=== PATIENT | female | born 1985 | race Caucasian/White ===

== ENCOUNTER 2016-12-28 09:39 | Emergency (ER) | payer MEDICAID ==
--- NOTE | 2016-12-28 10:44 | EDM.PDOC ---
[id number]: RIGHT SIDED ABDOMINAL PAIN Time Seen by Provider: 12/28/16 10:20 Source of Information: Reports: Patient History Limitations: Reports: No Limitations - History of Present Illness INITIAL COMMENTS - FREE TEXT/NARRATIVE: 31-year-old female who has had a right upper quadrant abdominal pain radiating to the right flank for the last 3 days. Some nausea and vomiting, decreased appetite but no fever. Some increased pain with deep breath but no shortness of breath or cough. She has a history of several abdominal surgeries including gastric bypass, cholecystectomy, and several laparoscopies to evaluate pain. No recent trauma, no rash over painful area. Denies distended feeling or diarrhea. Onset: Gradual (Started 3 days ago) Location: Reports: Abdomen, Back (Right flank) Quality: Reports: Ache, Pressure Severity: Moderate Worsens with: Reports: Other (Worsening with deep breath) Associated Symptoms: Reports: Loss of Appetite, Nausea/Vomiting. Denies: Chest Pain, Cough, Fever/Chills, Headaches, Shortness of Breath, Weakness Right Abdomen Pain Score (Numeric/FACES): 7 - Related Data Allergies Allergy/AdvReac Type Severity Reaction Status Date / Time Sulfa (Sulfonamide Allergy Cannot Verified 12/28/16 09:59 Antibiotics) Remember Home Meds: Home Meds Dicyclomine [Bentyl] 10 mg PO ONETIME PRN 12/28/16 [History] Doxepin [SINEquan] 25 mg PO BEDTIME 12/28/16 [History] Gabapentin [Neurontin] 400 mg PO DAILY 12/28/16 [History] Omeprazole 40 mg PO DAILY 12/28/16 [History] Topiramate [Topamax] 50 mg PO BID 12/28/16 [History] Past Medical History Respiratory History: Reports: Bronchitis, Recurrent Gastrointestinal History: Reports: Cholelithiasis, GERD, Irritable Bowel Syndrome Musculoskeletal History: Reports: Fracture Other Musculoskeletal History: Right hand Neurological History: Reports: Migraines Other Neuro History: Pseudotumor cerebril Psychiatric History: Reports: Anxiety, Depression Hematologic History: Reports: Anemia Other Hematologic History: Iron infusion done at clinic Dermatologic History: Reports: Psoriasis - Past Surgical History GI Surgical History: Reports: Bariatric Procedure, Cholecystectomy Other GI Surgeries/Procedures: 9yr RNY. 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 Social & Family History - Tobacco Use Smoking Status *Q: Current Every Day Smoker Years of Tobacco use: 15 Packs/Tins Daily: 0.5 - Caffeine Use Caffeine Use: Reports: Energy Drinks - Recreational Drug Use Recreational Drug Use: No ED ROS GENERAL - Review of Systems Review Of Systems: See Below Constitutional: Reports: Decreased Appetite. Denies: Fever, Chills HEENT: Reports: No Symptoms Respiratory: Reports: Pleuritic Chest Pain (Pain with deep breath). Denies: Shortness of Breath Cardiovascular: Denies: Lightheadedness, Palpitations GI/Abdominal: Reports: Abdominal Pain, Nausea. Denies: Diarrhea : Reports: No Symptoms Skin: Reports: No Symptoms Neurological: Reports: No Symptoms ED EXAM, GI/ABD - Physical Exam Exam: See Below Exam Limited By: No Limitations General Appearance: Alert, No Apparent Distress Eyes: Bilateral: Normal Appearance (No jaundice) Respiratory/Chest: No Respiratory Distress, Lungs Clear Cardiovascular: Regular Rate, Rhythm GI/Abdominal: Normal Bowel Sounds, Soft, Tenderness (She has moderate tenderness to palpation in the right upper quadrant, no significant guarding or rebound. No chest wall tenderness to palpation.) Back Exam: Normal Inspection. No: CVA Tenderness (R), CVA Tenderness (L) Extremities: Normal Inspection. No: Pedal Edema Neurological: Alert, Oriented Psychiatric: Normal Affect, Normal Mood Skin Exam: Warm, Dry Course - Vital Signs Last Recorded V/S: Last Vital Signs Temp 97.0 F 12/28/16 09:52 Pulse 74 12/28/16 11:20 Resp 16 12/28/16 11:20 BP 121/75 12/28/16 11:20 Pulse Ox 97 12/28/16 11:20 - Orders/Labs/Meds Labs: Laboratory Tests 12/28/16 12/28/16 12/28/16 Range/Units 10:32 10:32 10:36 WBC 9.0 (4.5-11.0) K/uL RBC 4.84 (3.30-5.50) M/uL Hgb 14.6 (12.0-15.0) g/dL Hct 44.9 (36.0-48.0) % MCV 93 (80-98) fL MCH 30 (27-31) pg MCHC 33 (32-36) % Plt Count 291 (150-400) K/uL Neut % (Auto) 58 (36-66) % Lymph % (Auto) 27 (24-44) % [place] % (Auto) 8 H (2-6) % Eos % (Auto) 6 H (2-4) % Baso % (Auto) 1 (0-1) % Sodium 141 (140-148) mmol/L Potassium 4.2 (3.6-5.2) mmol/L Chloride 106 (100-108) mmol/L Carbon Dioxide 29 (21-32) mmol/L Anion Gap 6.1 (5.0-14.0) mmol/L BUN 10 (7-18) mg/dL Creatinine 0.8 (0.6-1.0) mg/dL Est Cr Clr Drug Dosing 82.06 mL/min Estimated GFR (MDRD) > 60 (>60) Glucose 94 (74-106) mg/dL Calcium 8.5 (8.5-10.1) mg/dL Total Bilirubin 0.3 (0.2-1.0) mg/dL AST 22 (15-37) U/L ALT 23 (12-78) U/L Alkaline Phosphatase 83 (46-116) U/L Total Protein 7.4 (6.4-8.2) g/dL Albumin 3.5 (3.4-5.0) g/dL Globulin 3.9 H (2.3-3.5) g/dL Albumin/Globulin Ratio 0.9 L (1.2-2.2) Amylase 42 (25-115) U/L Lipase 116 (73-393) U/L Urine HCG, Qual Negative Meds: Medications Discontinued Medications Generic Name Dose Route Start Last Admin Trade Name Freq PRN Reason Stop Dose Admin Sodium Chloride 100 mls @ 3.5 mls/sec 12/28/16 11:45 12/28/16 12:01 Normal Saline IV 12/28/16 23:00 3 mls/sec ASDIRECTED MENDEZ Administration Iohexol 10 ml 12/28/16 11:30 12/28/16 11:33 Omnipaque-300 PO 10 ml . DIRECTED MENDEZ Administration Iopamidol 100 ml 12/28/16 11:44 12/28/16 12:01 Isovue-300 (61%) IV 12/29/16 11:45 100 ml . DIRECTED PRN Administration RADIOLOGY EXAM Ketorolac Tromethamine 60 mg 12/28/16 12:28 12/28/16 12:40 Toradol IM 12/28/16 12:29 60 mg ONETIME ONE Administration Sodium Chloride 10 ml 12/28/16 11:44 12/28/16 12:02 Normal Saline FLUSH 12/28/16 11:45 10 ml ONETIME ONE Administration - Re-Assessments/Exams Free Text/Narrative Re-Assessment/Exam: 12/28/16 10:44 Amylase, lipase, CBC CMP and UA along with urine were obtained. It is likely she will need some type of visual studies such as CT scan with some oral contrast because of the history of gastric bypass and cholecystectomy. 12/28/16 11:04 All labs are normal. A CT of the abdomen and pelvis will be obtained with one oral dose of contrast along with IV. 12/28/16 12:[address] is also completely normal other than postoperative changes. Patient was given 60 mg of Toradol IM, encouraged to take twice daily Aleve for her presumptive pleurisy or musculoskeletal pain and can return anytime if worsening. Departure - Departure Time of Disposition: 12:44 Disposition: Home, Self-Care 01 Condition: good Clinical Impression: Flank pain, Pleurisy without effusion - Discharge Information Instructions: Nonspecific Chest Pain Referrals: Lesly Dougherty CNM [Primary Care Provider] - Forms: ED Department Discharge Care Plan Goals: Try twice daily Aleve and consider rechecking in 2-3 days if not improving satisfactorily. Increase activity as tolerated. Return sooner if worsening such as shortness of breath or fever.
[2016-12-28 11:21] VITALS: BP 121/75
[2016-12-28] MEDS ORDERED: Iohexol 647 MG/ML 10 ML SDV PO SCH (11:30)
[2016-12-28] MEDS ORDERED: Sodium Chloride 0.9% 10 ML SDV FLUSH ONE (11:44)
[2016-12-28] MEDS ORDERED: Iopamidol 612 MG/ML 100 ML Bottle IV PRN (11:44)
[2016-12-28] MEDS ORDERED: Sodium Chloride 0.9% 100 ML IV SCH (11:45)
[2016-12-28] MEDS ORDERED: Ketorolac 60 MG/2 ML SDV IM ONE (12:28)
--- NOTE | 2016-12-28 12:43 | CT ---
CT abdomen and pelvis Indication: Right upper abdominal pain. Total DLP 812. Findings: Lung bases are clear. Tiny low-density lesion in the left hepatic lobe at 6 mm. Prior chol ecystectomy change. Adrenal glands are within normal limits. Pancreas within normal limits. Spleen w ithin normal limits. No dilated loops of small bowel. The limbs of the gastric bypass are nondilated . Small amount of free pelvic fluid. Appendix within normal limits. Terminal ileum within normal blevins its. No hydronephrosis. Bladder is unremarkable. Nonaneurysmal aorta. No acute osseous abnormality. Impression: 1. No acute intra-abdominal or pelvic process by CT. 2. Small low-density focus within the left lobe this is indeterminant. This could indicate a small h emangioma. Consider nonurgent ultrasound follow-up for evaluation.
== END 2016-12-28 12:44 | disposition home or self-care (01) ==
LOC: JP.ED 09:39
DX: R10.11 Right upper quadrant pain (principal); R09.1 Pleurisy; K21.9 Gastro-esophageal reflux disease without esophagitis; F41.9 Anxiety disorder, unspecified; F32.9 Major depressive disorder, single episode, unspecified; F17.210 Nicotine dependence, cigarettes, uncomplicated; Z98.84 Bariatric surgery status; Z90.49 Acquired absence of other specified parts of digestive tract; Z79.899 Other long term (current) drug therapy; Z88.2 Allergy status to sulfonamides
CPT/HCPCS: 36415; 74177; 80053; 81025; 82150; 83690; 85025; 99284; J1885; J7030; J7050; Q9967

== ENCOUNTER 2017-01-06 08:09 | Day surgery (SDC) | payer MEDICAID ==
[~2017-01-06 08:09] MED LIST: Midazolam 1 MG/ML 2 ML SDV ONE; Propofol 200 MG/20 ML SDV ONE; fentaNYL 100 MCG/2 ML SDV ONE
[2017-01-06] MEDS ORDERED: Lactated Ringers 1,000 ML IV SCH (09:15)
[2017-01-06] MEDS ORDERED: Cyanocobalamin (Vitamin B12) 1,000 MCG/ML SDV IM ONE (09:30)
[2017-01-06] MEDS ORDERED: Glycopyrrolate 0.2 MG/ML 2 ML SYRINGE IVPUSH ONE (09:45)
[2017-01-06] MEDS ORDERED: MVI, Adult with Vitamin K 10 ML, Thiamine 200 MG, Chromium/Copper/Mang/Selen/Zn 1 ML in... IV ONE ×4 (10:00)
[2017-01-06 13:40] VITALS: BP 113/66
--- NOTE | 2017-01-10 14:07 | OR ---
DATE OF PROCEDURE: 01/06/2017 PREOPERATIVE DIAGNOSIS: Upper abdominal pain. 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 OPERATIVE PROCEDURE: Upper GI endoscopy with biopsies of gastric pouch for CLOtest. ANESTHESIA: IV sedation. INDICATION FOR PROCEDURE: This is a 31-year-old status post Walter-en-Y gastric bypass done in [place] some years ago. She presents now with a right upper quadrant pain. She is status post previous cholecystectomy but has had negative MRCP. The plan is to proceed with upper GI endoscopy to see if there are some identifiable cause. One of the pitfalls potentially would be the bypassed stomach and duodenum are not available for examination. Potential risks including bleeding and perforation were discussed and the patient wishes to proceed. DETAILS OF PROCEDURE: The patient was taken to the operative room, placed in a left lateral decubitus position. IV sedation was administered, after which the upper GI endoscope was passed orally through the length of the esophagus and into the gastric pouch and from there through the gastrojejunostomy roughly 20 cm into the Walter limb. No abnormality was noted during the examination. There was some very mild redness within the gastric pouch. Otherwise, there is no stricturing, ulceration, or other more significant inflammation. Biopsies were obtained from the gastric pouch, sent for CLOtest for H. pylori, and the scope was withdrawn and the procedure was concluded. The patient will be followed up in clinic next Tuesday. She was just started on Protonix. After another week or so on Protonix if her symptoms are not improved, we could consider diagnostic laparoscopy. She will be following up with us in the clinic next Tuesday. Carlos Manuel Nguyen MD /[id number]
== END 2017-01-06 14:05 | disposition home or self-care (01) ==
LOC: JP.SDS 08:09
PROVIDERS: ATTEND Surgery
DX: K29.70 Gastritis, unspecified, without bleeding (principal); K21.9 Gastro-esophageal reflux disease without esophagitis; Z98.84 Bariatric surgery status; Z88.2 Allergy status to sulfonamides; Z88.8 Allergy status to other drugs, medicaments and biological substances; F17.210 Nicotine dependence, cigarettes, uncomplicated; Z90.49 Acquired absence of other specified parts of digestive tract
CPT/HCPCS: 43239; 87081; J2250; J2704; J3010; J3420; J7120

== ENCOUNTER 2017-01-18 10:25 | Inpatient (IN) | payer MEDICAID ==
[~2017-01-18 10:25] MED LIST changes: +Bupivacaine 0.5%/EPINEPHrine 1:200,000 50 ML MDV ONE; -Midazolam 1 MG/ML 2 ML SDV ONE; -Propofol 200 MG/20 ML SDV ONE; -fentaNYL 100 MCG/2 ML SDV ONE
[2017-01-18] MEDS ORDERED: Acetaminophen 500 MG Tab PO ONE (10:30)
[2017-01-18] MEDS ORDERED: Dextrose 5%-Lactated Ringers 1,000 ML IV SCH (10:30)
[2017-01-18] MEDS ORDERED: Scopolamine 1.5 MG Transdermal Patch TRDERM SCH (10:30)
[2017-01-18] MEDS ORDERED: Gabapentin 100 MG Cap PO ONE (11:00)
[2017-01-18] MEDS ORDERED: Celecoxib 200 MG Cap PO ONE (11:00)
[2017-01-18] MEDS ORDERED: Lactated Ringers 1,000 ML ONE ×3 (11:07→14:53)
[2017-01-18] MEDS ORDERED: Dexamethasone 4 MG/ML SDV ONE (11:07)
[2017-01-18] MEDS ORDERED: Succinylcholine/Normal Saline 200 MG/10 ML Syringe ONE (11:07)
[2017-01-18] MEDS ORDERED: Ondansetron 4 MG/2 ML SDV ONE (11:07)
[2017-01-18] MEDS ORDERED: Rocuronium 50 MG/5 ML Vial ONE ×2 (11:07→15:40)
[2017-01-18] MEDS ORDERED: Neostigmine Methylsulfate 1 MG/ML 5 ML Syringe ONE (11:07)
[2017-01-18] MEDS ORDERED: Propofol 200 MG/20 ML SDV ONE (11:07)
[2017-01-18] MEDS ORDERED: fentaNYL 250 MCG/5 ML SDV ONE ×2 (11:08→14:41)
[2017-01-18] MEDS ORDERED: Ketamine 500 MG/5 ML MDV IV SCH (12:00)
[2017-01-18] MEDS ORDERED: Lidocaine 2% 100 MG/5 ML Syringe IVPUSH ONE (12:00)
[2017-01-18] MEDS ORDERED: Ropivacaine 36 ML, Dexamethasone 8 MG, EPINEPHrine 0.4 MG, Sodium Chloride 0.9% 41.6 ML NERVRT SCH ×4 (12:00)
[2017-01-18] MEDS ORDERED: Hydrogen Peroxide 3% Top Soln 240 ML Bottle ONE (12:41)
[2017-01-18] MEDS: cefOXitin 2 GM in Sodium Chloride 0.9% 50 ML IV ONE ×2 (12:59→17:26)
[2017-01-18] MEDS ORDERED: Linezolid 200 MG/100 ML Bag IRR ONE (13:59)
[2017-01-18] MEDS ORDERED: Meropenem 500 MG SDV ONE (14:24)
[2017-01-18] MEDS ORDERED: Ketoconazole 2% Crm 30 GM Tube TOP ONE (14:45)
[2017-01-18] MEDS ORDERED: diphenhydrAMINE 50 MG/ML SDV IVPUSH PRN (17:14)
[2017-01-18] MEDS ORDERED: Ondansetron 4 MG/2 ML SDV IVPUSH PRN (17:14)
[2017-01-18] MEDS ORDERED: SCOPOLAMINE PATCH ASK TOP SCH (17:14)
[2017-01-18] MEDS ORDERED: Labetalol 20 MG/4 ML Syringe IVPUSH PRN (17:14)
[2017-01-18] MEDS: Lidocaine 0.4%/D5W 2 GM/500 ML BAG IV SCH (17:22)
[2017-01-18] MEDS: Acetaminophen 325 MG Tab PO SCH (17:53)
[2017-01-18] MEDS: Pantoprazole 40 MG Vial IVPUSH SCH (17:53)
[2017-01-18] MEDS: cefOXitin 2 GM in Sodium Chloride 0.9% 50 ML IV SCH (17:58)
[2017-01-18] MEDS: MVI, Adult with Vitamin K 10 ML, Thiamine 200 MG, Chromium/Copper/Mang/Selen/Zn 1 ML in... IV SCH ×4 (17:59)
[2017-01-18] MEDS: hydrOXYzine HCl 50 MG/ML SDV IM PRN (18:11)
[2017-01-18] MEDS ORDERED: Naloxone 0.4 MG/ML SDV IVPUSH PRN (19:06)
[2017-01-18] MEDS ORDERED: HYDROmorphone/Normal Saline 15 MG/30 ML PCA IV PRN (19:06)
[2017-01-18] MEDS: Metoclopramide 10 MG/2 ML SDV IVPUSH PRN (19:40)
[2017-01-18] MEDS: Heparin Sodium 5,000 Units/ML Vial SUBCUT SCH (20:24)
[2017-01-18] MEDS: Gabapentin 300 MG Cap PO SCH (20:24)
[2017-01-19] MEDS: Acetaminophen 325 MG Tab PO SCH ×4 (00:13→17:40)
[2017-01-19] MEDS: Dextrose 5%-Lactated Ringers 1,000 ML IV SCH ×2 (00:18→07:10)
[2017-01-19] MEDS: cefOXitin 2 GM in Sodium Chloride 0.9% 50 ML IV SCH ×4 (00:20→17:40)
[2017-01-19] MEDS ORDERED: Iohexol 647 MG/ML 50 ML SDV PO STA (03:43)
[2017-01-19] MEDS: Lidocaine 0.4%/D5W 2 GM/500 ML BAG IV SCH (05:58)
[2017-01-19] MEDS: Fluticasone Propionate Nasal Spray 16 GM Bottle NASBOTH SCH (08:57)
[2017-01-19] MEDS: Celecoxib 200 MG Cap PO SCH (08:57)
[2017-01-19] MEDS: Gabapentin 300 MG Cap PO SCH ×3 (08:58→21:34)
[2017-01-19] MEDS: SCOPOLAMINE PATCH CHECK TOP SCH (08:58)
[2017-01-19] MEDS: Heparin Sodium 5,000 Units/ML Vial SUBCUT SCH ×2 (08:58→21:33)
[2017-01-19] MEDS: Cetirizine 10 MG Tab PO SCH (08:59)
[2017-01-19] MEDS ORDERED: Ketoconazole 2% Crm 30 GM Tube TOP SCH (09:00)
[2017-01-19] MEDS: Topiramate 25 MG Tab PO SCH ×3 (09:00→21:34)
--- NOTE | 2017-01-19 09:07 | CR ---
UGI wo KUB HISTORY: eval R-Y GBP FINDINGS: Limited upper GI series was obtained without fluoroscopy. Water-soluble contrast was admin istered orally. Immediate along with 15 minute delayed images were obtained. Small gastric pouch is demonstrated. Contrast passes readily through the gastrojejunostomy into loops of jejunum. No obstru ction is identified. There is no contrast extravasation. Surgical drains are noted left upper quadra nt. There are surgical clips right upper quadrant consistent with prior cholecystectomy. IMPRESSION: No postoperative complication identified status post Walter-en-Y gastric bypass.
[2017-01-19] MEDS: HYDROmorphone 2 MG Tab PO PRN ×4 (09:09→21:41)
--- NOTE | 2017-01-19 11:08 | PCM.SURGPN ---
- General Info Date of Service: 01/19/17 Date of Surgery/Procedure: 01/18/17 Functional Status: Denies: pain controlled - Review of Systems General: Reports: No Symptoms Pulmonary: Reports: no symptoms Cardiovascular: Reports: No Symptoms Gastrointestinal: Reports: Abdominal pain Systems Review Comment:: Patient is POD#1. 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 She remains afebrile with normal vital signs. She has had 570mL of oral intake and voided 2200mL of urine via Bill catheter. The patient denies nausea. She has been passing gas but no BM as of yet. Her CHRIS drain #1 had 40mL and #2 had 90mL of serosanginous output. - Patient Data Vitals - most recent: Last Vital Signs Temp 36.9 C 01/19/17 07:00 Pulse 79 01/19/17 07:00 Resp 16 01/19/17 07:00 BP 114/64 01/19/17 07:00 Pulse Ox 99 01/19/17 07:13 Weight - most recent: 68.765 kg I&O - last 24 hours: Intake & Output 01/18/17 01/19/17 01/19/17 22:59 06:59 14:59 Intake Total 270 2627 400 Output Total 455 1875 1300 Balance -185 752 -900 Lab Results last 24 hrs: Laboratory Results - last 24 hr 01/18/17 Range/Units 10:35 Ferritin 212 (8-388) ng/ml - Problem List Review Problem List Initiated/Reviewed/Updated: Yes - My Orders Last 24 Hours: Active Orders 24 hr Category Date Time Status Patient Status [ADT] Routine ADT 01/18/17 16:30 Active Ambulate [RC] ASDIRECTED Care 01/18/17 17:52 Active Communication Order [RC] Q4HR Care 01/18/17 17:52 Active DC Bill Catheter [Urinary Catheter Removal] [RC] Per Care 01/19/17 07:42 Active Unit Routine Drain Management [RC] Q12H Care 01/18/17 17:52 Active Insert Bill Catheter [Insert Urinary Catheter] [OM.PC] Care 01/18/17 18:15 Ordered Q24H Intake and Output [RC] QSHIFT Care 01/18/17 17:52 Active May Shower [RC] ASDIRECTED Care 01/19/17 07:46 Active Notify Provider Intake and Out [RC] ASDIRECTED Care 01/18/17 17:52 Active Notify Provider [RC] PRN Care 01/18/17 19:06 Inactive Oxygen Therapy [RC] PRN Care 01/18/17 17:52 Active Pulse Oximetry [RC] CONTINUOUS Care 01/18/17 17:52 Active RT BiPAP/CPAP [RC] ASDIRECTED Care 01/18/17 17:52 Active RT Incentive Spirometry [RC] Q1HWA Care 01/18/17 17:52 Active Telemetry Monitoring [Cardiac Monitoring] [RC] Care 01/18/17 18:01 Active CONTINUOUS Up to Chair [RC] ASDIRECTED Care 01/18/17 17:52 Active Urinary Catheter Assessment [RC] ASDIRECTED Care 01/18/17 18:02 Active Vital Signs [RC] Q4H Care 01/18/17 17:52 Active Consult to Bariatric Services [CONS] Routine Cons 01/18/17 17:52 Active Consult to Supervisor Compounding And Finishing [CONS] Routine Cons 01/18/17 17:52 Active Consult to Pharmacy [CONS] Routine Cons 01/18/17 17:52 Active Respiratory Care Assess and Treatment [CONS] Routine Cons 01/18/17 17:52 Active Bariatric Diet [DIET] Diet 01/19/17 Breakfast Active Bariatric Diet [DIET] Diet 01/19/17 Lunch Active Acetaminophen [Tylenol] Med 01/18/17 18:00 Active 650 mg PO Q6H Celecoxib [CeleBREX] Med 01/19/17 08:00 Active 200 mg PO DAILY@0800 Cetirizine [ZyrTEC] Med 01/19/17 09:00 Active 10 mg PO DAILY Cyanocobalamin (Vitamin B12) [Vitamin B12] Med 01/20/17 09:00 Once 1,000 mcg IM ONETIME ONE Dextrose 5%-Lactated Ringers 1,000 ml Med 01/18/17 17:15 Active IV ASDIRECTED Doxepin [SINEquan] Med 01/19/17 21:00 Active 30 mg PO BEDTIME Fluticasone Propionate [Flonase] Med 01/19/17 09:00 Active 0 gm NASBOTH DAILY Gabapentin [Neurontin] Med 01/18/17 21:00 Active 300 mg PO TID HYDROmorphone [Dilaudid] Med 01/19/17 07:46 Active 2 - 4 mg PO Q4H PRN Heparin Sodium Med 01/18/17 20:00 Active 5,000 units SUBCUT Q12H Labetalol [Normodyne] Med 01/18/17 17:14 Active 5 - 15 mg IVPUSH Q1H PRN Lidocaine 0.4%/D5W [Lidocaine 2 GM/D5W 500 ML] Med 01/18/17 12:00 Active 2 gm in 500 ml IV 2 mg/min MVI, Adult with Vitamin K [Infuvite Adult] 10 ml Med 01/18/17 18:00 Active Thiamine [Vitamin B-1] 200 mg Chromium/Copper/Jesús/Selen/Zn [Multitrace-5 Concentrate ] 1 ml Dextrose 5%-Lactated Ringers 1,000 ml IV DAILY@1600 Metoclopramide [Reglan] Med 01/18/17 17:14 Active 10 mg IVPUSH Q6H PRN Non-Formulary Medication [NF Drug] Med 01/18/17 17:14 Active 1 each TOP DAILY Ondansetron [Zofran ODT] Med 01/19/17 07:46 Active 4 mg PO Q4H PRN Ondansetron [Zofran] Med 01/18/17 17:14 Active 4 mg IVPUSH Q4H PRN Pantoprazole [ProTONIX IV] Med 01/18/17 18:00 Active 40 mg IVPUSH Q24H Scopolamine [Transderm-Scop] Med 01/18/17 17:14 Active 1.5 mg TOP ASDIRECTED Scopolamine [Transderm-Scop] Med 01/18/17 10:30 Active 1.5 mg TRDERM Q72H Topiramate [Topamax] Med 01/19/17 10:00 Active 25 mg PO QID cefOXitin [Mefoxin] 2 gm Med 01/18/17 18:30 Active Sodium Chloride 0.9% [Normal Saline] 50 ml IV Q6H diphenhydrAMINE [Benadryl] Med 01/18/17 17:14 Active 25 - 50 mg IVPUSH Q4H PRN hydrOXYzine HCl [Vistaril] Med 01/18/17 17:14 Active 75 - 100 mg IM Q4H PRN metFORMIN [Glucophage] Med 01/19/17 08:00 Active 850 mg PO BIDMEALS Abdominal Binder [OM.PC] Per Unit Routine Ot 01/18/17 17:52 Ordered DME for Inpatients [OM.PC] Per Unit Routine Ot 01/18/17 17:52 Ordered PT Screening [OM.PC] Routine Ot 01/18/17 17:52 Active Remove Dressing [OM.PC] Routine Ot 01/19/17 07:46 Ordered Sequential Compression Device [OM.PC] Per Unit Routine Ot 01/18/17 17:52 Ordered Sequential Compression Device [OM.PC] Routine Ot 01/18/17 10:30 Ordered Specialty Bed [OM.PC] Continuous Ot 01/18/17 17:52 Ordered - Assessment Assessment (Free Text/Narrative):: Diagnostic laparoscopy of abdomen with resection/revision of JJ and total gastrectomy (prior chris-en-y) and intra-op transgastric UGI. - Plan Plan (Free Text/Narrative):: 1. IV fluids down 100 mL/hr 2. Step II diet 3. Remove Bill catheter 4. Ketaconazole cream to bilateral inframammary folds 5. Restart Metformin 850 mg PO BID with meals 6. Shower 7. Dilaudid 2-4 mg PO q4h pain 8. Zofran 4mg ODT PRN
[2017-01-19] MEDS: MVI, Adult with Vitamin K 10 ML, Thiamine 200 MG, Chromium/Copper/Mang/Selen/Zn 1 ML in... IV SCH ×4 (16:46)
[2017-01-19] MEDS: Pantoprazole 40 MG Vial IVPUSH SCH (17:40)
[2017-01-19] MEDS: Doxepin 10 MG Cap PO SCH (21:34)
[2017-01-20] MEDS: Acetaminophen 325 MG Tab PO SCH ×4 (00:33→17:14)
[2017-01-20] MEDS: cefOXitin 2 GM in Sodium Chloride 0.9% 50 ML IV SCH (00:34)
[2017-01-20] MEDS: Dextrose 5%-Lactated Ringers 1,000 ML IV SCH (00:37)
[2017-01-20] MEDS: HYDROmorphone 2 MG Tab PO PRN ×5 (02:21→18:03)
[2017-01-20] MEDS: Topiramate 25 MG Tab PO SCH ×4 (06:12→21:14)
[2017-01-20] MEDS: Celecoxib 200 MG Cap PO SCH (07:40)
[2017-01-20] MEDS: Heparin Sodium 5,000 Units/ML Vial SUBCUT SCH ×2 (07:40→21:19)
[2017-01-20] MEDS: Gabapentin 300 MG Cap PO SCH ×3 (08:11→21:14)
[2017-01-20] MEDS: Cetirizine 10 MG Tab PO SCH (08:11)
[2017-01-20] MEDS: Fluticasone Propionate Nasal Spray 16 GM Bottle NASBOTH SCH (08:12)
[2017-01-20] MEDS: SCOPOLAMINE PATCH CHECK TOP SCH (08:14)
[2017-01-20] MEDS ORDERED: Cyanocobalamin (Vitamin B12) 1,000 MCG/ML SDV IM ONE (09:00)
[2017-01-20] MEDS: Pantoprazole 40 MG Tab.CR PO SCH (11:17)
[2017-01-20] MEDS: Ondansetron 4 MG Tab.DIS PO PRN ×2 (12:24→19:21)
--- NOTE | 2017-01-20 15:53 | PCM.SURGPN ---
- General Info Date of Service: 01/20/17 Date of Surgery/Procedure: 01/18/17 Functional Status: Reports: ambulating, urinating. Denies: pain controlled - Review of Systems General: Reports: No Symptoms Pulmonary: Reports: no symptoms Cardiovascular: Reports: No Symptoms Gastrointestinal: Reports: Abdominal pain Systems Review Comment:: The patient is POD#2. She is afebrile with normal vital signs. The patient states her pain is an 8/10 on oral Dilaudid. She is ambulating well. Her oral intake was 2400mL and she is voiding 4100mL of urine. Her CHRIS drain#2 had 200mL of serosanginous output. The patient voices no other complaints at this time. - Patient Data Vitals - most recent: Last Vital Signs Temp 36.0 C 01/20/17 14:50 Pulse 66 01/20/17 14:50 Resp 16 01/20/17 14:50 BP 113/71 01/20/17 14:50 Pulse Ox 96 01/20/17 14:50 Weight - most recent: 68.765 kg I&O - last 24 hours: Intake & Output 01/20/17 01/20/17 01/20/17 06:59 14:59 22:59 Intake Total 1226 2139 Output Total 1760 2671 65 Balance -534 -532 -65 - Exam Wound/Incisions: healing well, dressing dry and intact General: alert, oriented Neck: supple Lungs: Clear to auscultation, Normal respiratory effort Cardiovascular: Regular Rate, Regular Rhythm Abdomen: bowel sounds present, soft, tenderness (diffusely ) Extremities: no edema Skin: warm, dry, intact - Problem List Review Problem List Initiated/Reviewed/Updated: Yes - My Orders Last 24 Hours: Active Orders 24 hr Category Date Time Status Bariatric Diet [DIET] Diet 01/20/17 Breakfast Active Doxepin [SINEquan] Med 01/19/17 21:00 Active 30 mg PO BEDTIME Pantoprazole [ProTONIX] Med 01/20/17 11:30 Active 40 mg PO ACBREAKFAST Convert IV to Saline Lock [OM.PC] Routine Oth 01/20/17 08:26 Ordered - Assessment Assessment (Free Text/Narrative):: 1. Total gastrectomy (chris-en-y gastrojejunostomy) and intra-operative transgastric UGI for chronic upper and mid abdominal pain associated with marked inflammation to proximal duodenum and intussusception at jejunostomy. - Plan Plan (Free Text/Narrative):: 1. Step 4 diet 2. Shower 3. Saline lock IV 4. Plan for patient discharge tomorrow a.m.
[2017-01-20] MEDS ORDERED: Bisacodyl 5 MG Tab PO PRN (17:45)
[2017-01-20] MEDS ORDERED: Magnesium Citrate Solution 296 ML Bottle PO ONE (17:45)
[2017-01-20] MEDS ORDERED: HYDROmorphone 1 MG/ML Syringe IVPUSH ONE (21:04)
[2017-01-20] MEDS: Metoclopramide 10 MG/2 ML SDV IVPUSH PRN (21:13)
[2017-01-20] MEDS: Doxepin 10 MG Cap PO SCH (21:14)
[2017-01-20] MEDS: Acetaminophen/oxyCODONE 325-7.5 MG Tab PO PRN (21:34)
[2017-01-21] MEDS: Acetaminophen 325 MG Tab PO SCH ×2 (00:16→05:19)
[2017-01-21] MEDS: Acetaminophen/oxyCODONE 325-7.5 MG Tab PO PRN ×3 (01:40→09:49)
[2017-01-21] MEDS: Ondansetron 4 MG Tab.DIS PO PRN (03:27)
[2017-01-21] MEDS: hydrOXYzine HCl 50 MG/ML SDV IM PRN (03:37)
[2017-01-21] MEDS: Topiramate 25 MG Tab PO SCH ×2 (05:13→09:49)
[2017-01-21] MEDS: Gabapentin 300 MG Cap PO SCH (08:24)
[2017-01-21] MEDS: Cetirizine 10 MG Tab PO SCH (08:24)
[2017-01-21] MEDS: Fluticasone Propionate Nasal Spray 16 GM Bottle NASBOTH SCH (08:24)
[2017-01-21] MEDS: Pantoprazole 40 MG Tab.CR PO SCH (08:25)
[2017-01-21] MEDS: Heparin Sodium 5,000 Units/ML Vial SUBCUT SCH (08:25)
[2017-01-21] MEDS: Celecoxib 200 MG Cap PO SCH (08:25)
[2017-01-21 08:59] VITALS: BP 112/60
[2017-01-21] MEDS ORDERED: Docusate Sodium 100 MG Cap PO SCH (09:00)
--- NOTE | 2017-01-21 09:52 | OR ---
DATE OF PROCEDURE: 01/18/2017 PREOPERATIVE DIAGNOSIS: Chronic upper and mid abdominal pain. POSTOPERATIVE DIAGNOSIS: Chronic upper and mid abdominal pain associated with, 1. Marked inflammation of proximal duodenum. 2. Intussusception of the jejunojejunostomy. OPERATIVE PROCEDURE: Diagnostic laparoscopy with lysis of adhesions 1. Resection and revision of the jejunojejunostomy (65806). 2. Total gastrectomy with Walter-en-Y esophagojejunostomy (07587). 3. Gastrotomy to facilitate upper GI endoscopy of bypassed stomach (71470). ANESTHESIA: General. ADAPTED PHYSICAL EDUCATION AIDE: MARIE Ackerman student. INDICATIONS FOR PROCEDURE: A 31-year-old status post previous Walter-en-Y gastric bypass presenting with some ongoing problems with upper abdominal pain. She is status post previous cholecystectomy. Recently, upper GI endoscopy showed no significant inflammation in the gastric pouch or gastrojejunostomy. CT scan was unremarkable, and MRCP was likewise unremarkable. The plan at this point is to proceed with a diagnostic laparoscopy. We will review the small bowel. Also, the patient's discomfort to a large extent is in the right upper quadrant, and we will need to try to evaluate whether or not she has some ulcer disease or duodenal ulcer disease in the bypassed stomach. The patient has in place a ventriculoperitoneal shunt. A small incision will be made over that and that would be ligated temporarily during the course of the procedure to prevent backflow of CO2 in the cerebral ventricles. Potential risks of the procedure including bleeding, infection, leaks from various GI tract closures, otherwise injury of the viscera, postoperative bowel obstruction, and the possibility that the procedure may not be efficacious. It was gone over, and the patient wishes to proceed. DETAILS OF PROCEDURE: The patient was taken to the operating room and after general endotracheal anesthesia was induced, was placed in a lithotomy position. Bill catheter was inserted, and at that point, bilateral transversus abdominis plane blocks were placed under direct ultrasound guidance using the standard injectate for the block. At this point, the abdomen and chest were prepped and draped. The point where the shunt was going to be temporarily ligated was in the upper chest as the patient did have some fungal inflammation in the inframammary fold, that we were able to mobilize and get disintegrated from that. Two small transverse incisions were made over that area just to the right of the midline and carried out through the skin and subcutaneous tissue. The surface of the shunt itself was not dissected out, but enough soft tissue around it was mobilized, felt that a mosquito clamp could be applied to occlude the shunt temporarily. At this point, Zyvox containing gauze was placed over the defect, and then occluded with an adhesive clear dressing for the remainder of the case. At this point in the left lower quadrant, a transverse incision was made. The peritoneal cavity entered under direct vision with the Optiview trocar and inflated to 15 mmHg pressure of CO2. Laparoscope was then reinserted. No underlying trocar insertion site injuries were seen. Following this, eventually 5 additional trocars were placed across the upper and mid abdomen. Exploration revealed 2 issues: One is going down the small bowel, the patient had a visible intussusception of the common limb being more or less engulfed by the bowel above the jejunojejunostomy. This area was quite edematous, and the bowel proximally was somewhat dilated. The reddened and edematous area involving the area of the jejunojejunostomy would appear likely to be causing the symptoms given the degree of inflammation grossly evident. The other area of concern was marked redness and edema of the distal most stomach and proximal duodenum indicative of some possible gastritis/duodenitis and/or ulcer disease at that level. The plan at this point was then to proceed with resection and revision of the jejunojejunostomy. We will then do a basic gastrotomy into the bypassed portion of the stomach and evaluate the stomach and proximal duodenum to the extent possible and then proceed from there in terms of possible gastric resection. It is notable that the patient has been on proton pump inhibitors for some time, so if there was gastritis, duodenitis, and/or ulcer disease at that level, then it would be considered refractory to medical management at that time. At this point, the small bowel had been run for its entirety, and no additional abnormalities were noted. The lumen of the Walter limb as it went through the anastomosis had a common limb that was fairly wide. Given this was detached off the anastomotic site with the biliopancreatic limb, that was done with 2 firings of KATHI ramirez loads, and at that point there was no significant narrowing of the small bowel at the point where we had the Walter limb going into the common limb. A portion of the end of the biliopancreatic limb was devascularized and that area was resected and that specimen delivered from the field. Going around 20 cm further distal from the point of the separation of the small bowel which had been previously relatively proximal, the common limb was brought up to the biliopancreatic limb and a [id number] jejunojejunostomy accomplished with internal firing of the Endo-KATHI ramirez load followed by transverse closure of the common opening with a purple load. The angles of anastomosis and mesenteric defect were approximated with some 0 Ethibond stitch along with fibrin sealant. Attention was then taken to the stomach. A gastrotomy was made in the mid greater curvature of the stomach and through a 15-mm trocar in the left subcostal area, the gastroscope was brought into the abdomen and then from the area into the stomach. The fundus of the stomach as well as body were unremarkable. As one passed down toward the antrum, however, there was increasing redness and quite a bit in the way of edema. The edema was significant enough that we were not quite able to get all the way through the pyloric sphincter as that was quite reddened and edematous consistent with gastritis and some possible ulcer disease distal to that. At that point, the plan was made to proceed with the total gastrectomy. The gastroscope was withdrawn and the gastrotomy was then closed off with 2 purple loads at that time. The dissection then began along the greater curvature of the stomach and continued up along the area of the fundus, dividing the short gastric vessels. Once these were taken all the way up to the diaphragm, the vessel was cleanly divided with Harmonic scalpel. The more proximal lesser curvature attachments were taken down. The patient at this time had anastomosis between the Walter limb and the area of essentially the esophagogastric junction. As this was divided, a portion of that anastomosis was opened, and the anastomosis was subsequently re-completed with firing of the KATHI purple load at the esophagojejunostomy, thus completing that anastomosis. At this point, the fundus was completely mobilized and that along with the proximal body of stomach were able to be rotated underneath the Walter limb and at that point gradually the greater curvature and lesser curvature vasculature down to the level of the duodenum was divided using Harmonic Scalpel and also with the vascular mesenteric tim. The dissection of the distal most stomach and proximal most duodenum was notable in terms of some inflammatory adherence to the pancreas and care was taken to dissect that plane flushed with the bowel without significant disturbance of the substance of the pancreas, to which it had been adherent. Once the duodenum was enough that we were able to get about a centimeter beyond the pyloric sphincter, the duodenum was then divided with 2 firings of the KATHI purple load. The duodenal stump and staple line appeared to be intact, and the specimen of the total gastrectomy was then placed off to the side. The area of dissection was inspected. No further problems were noted. Some of the additional fibrin sealant was then placed into the area of the newly formed esophagojejunostomy as well as the duodenal stump, also omentum was placed adjacent to those areas as well. Two Vitaliy-Moses drains were then placed, one over the duodenal stump and one over the esophagojejunostomy, and at that point, the gastric specimen was retrieved. The small bowel specimen had previously been retrieved as well. At the point of the fascia, the 12 and 15-mm trocar sites were closed with 0 Vicryl stitch and the remaining trocars removed, the peritoneal cavity deflated, and the incision closed with some 4-0 Vicryl stitch, and the drains were fixed with some 4-0 Vicryl stitch as well. The clamp over the ventriculoperitoneal shunt was then removed, and that incision was then closed with 4-0 Vicryl stitch deep and then 4-0 Vicryl skin stitch. Dressing was applied to all of the locations, and there were no other complications. The patient was taken to the recovery room in satisfactory condition. Carlos Manuel Nguyen MD /[id number]
--- NOTE | 2017-01-22 02:56 | DISCH ---
ADMISSION DIAGNOSES: 1. Partial small bowel obstruction. 2. Abdominal pain right upper quadrant. 3. History of Walter-en-Y gastric bypass surgery. 4. Iron deficiency anemia. 5. Unspecified surgical malabsorption. 6. B12 deficiency. 7. Pseudotumor cerebri with a ventriculoperitoneal shunt. DISCHARGE DIAGNOSES: Diagnostic laparoscopy with lysis of adhesions with resected revision of jejunostomy junction, total gastrectomy with Walter-en-Y gastrojejunostomy, gastrectomy with intraoptimal upper GI for chronic upper and mid abdominal pain associated with marked inflammation of proximal duodenum, and intussusception at the JJ. Date of surgery 01/18/2017. HISTORY: Jacquelyn Blanchard is a 31-year-old female with longstanding history of upper right upper quadrant and mid abdominal pain. After preoperative evaluation and discussion of possible risks and possible complications, she wished to proceed with surgical procedure. HOSPITAL COURSE: Jacquelyn had her surgery on 01/18/2017. She had no operative complications. On postop day #1, she was advanced to a diet, she tolerated it well. Her pain was controlled. Her activity was good. She was able to be discharged to home without any complications on 01/21/2017. PHYSICAL EXAMINATION: GENERAL: Jacquelyn is a 31-year-old female. VITAL SIGNS: Height is 5 feet 1.81 inches. Weight is 151 pounds. TPR 98.8, 98, 16, and blood pressure 112/60. HEENT: Negative. NECK: Supple. HEART: Regular rate and rhythm. LUNGS: Clear. ABDOMEN: Soft. CHRIS drains x2 were removed, 4x4s over CHRIS drain sites. Abdominal binder is on. EXTREMITIES: Without peripheral edema. DISPOSITION: Discharged to home. CONDITION: Stable and improving. FOLLOWUP APPOINTMENT: 01/31/2017 at 09:00 a.m. DISCHARGE MEDICATIONS: Home medications: 1. Tylenol 650 mg q.6 hours, #100 p.r.n. pain. 2. Percocet 7.5/325 mg 1 to 2 every 4 hours p.r.n. pain, #50. 3. Celebrex 200 mg p.o. daily, #14. 4. Milk of magnesia 30 mL to take 1 daily, two were sent home with the patient. 5. Zofran 4 mg q.4 hours p.r.n. nausea, #30. She is to resume her home medication of Zyrtec 10 mg oral daily, chewable multivitamin one tablet twice a day, vitamin D3 at 5000 International Units daily, vitamin B12 sublingual 1000 mg daily, Colace 100 mg twice daily, doxepin (Sinequan) 30 mg oral at bedtime, Flonase 1 spray nasal daily, Neurontin 100 mg oral 4 times a day, Vitron-C 1 tablet daily, omeprazole 40 mg daily, and Protonix 40 mg oral daily. She will take one of the Protonix or omeprazole whichever she has at home, and then finish out the other one. Topiramate 25 mg oral 4 times a day, vitamin B 100 one tablet daily. She is to currently stop taking the Celebrex 100 mg, Bentyl, Medrol Dosepak, and tramadol. DIET: After discharge, step-4 gastric bypass diet. Drink 8 to 10 glasses of water a day. ACTIVITY: As tolerated. No lifting greater than 10 pounds for 2 weeks. Driving, do not drive while on pain medication. Shower/bathing, may shower. DISCHARGE INSTRUCTIONS: Notify provider of fever, nausea, or vomiting. Wound incision care, keep site clean and dry. Wear abdominal binder for 2 weeks, and then as tolerated. SPECIAL INSTRUCTIONS: Use incentive spirometer 10 times every hour while awake for 2 weeks.
== END 2017-01-21 11:45 | disposition home or self-care (01) | DRG 220 ==
LOC: JP.SDSSCHI 10:25 → JP.SDS 10:25 → EDSTATUS 15:00 → JP.2SS 17:37
PROVIDERS: ADMIT Surgery; ATTEND Surgery
PROC: 0D154ZA Bypass Esophagus to Jejunum, Percutaneous Endoscopic Approach (ICD-10-PCS; principal; 2017-01-18)
PROC: 3E0T3BZ Introduction of Anesthetic Agent into Peripheral Nerves and Plexi, Percutaneous Approach (ICD-10-PCS; principal; 2017-01-18)
PROC: 0DBA4ZX Excision of Jejunum, Percutaneous Endoscopic Approach, Diagnostic (ICD-10-PCS; principal; 2017-01-18)
PROC: 0DT64ZZ Resection of Stomach, Percutaneous Endoscopic Approach (ICD-10-PCS; principal; 2017-01-18)
DX: K56.1 Intussusception (principal); Z98.2 Presence of cerebrospinal fluid drainage device; K56.69 Other intestinal obstruction; Z98.84 Bariatric surgery status; Z98.0 Intestinal bypass and anastomosis status; K91.2 Postsurgical malabsorption, not elsewhere classified; D50.8 Other iron deficiency anemias; G93.2 Benign intracranial hypertension
CPT/HCPCS: 36415; 74240; 74240-26; 82728; 88307; 88342; A9270-GY; C9113; J0131; J0171; J0694; J1100; J1170; J1644; J2001; J2020; J2185; J2405; J2704; J2765; J2795; J3010; J3410; J3411; J3420; J7030; J7042; J7050; J7120; Q9967

== ENCOUNTER 2017-02-18 06:43 | Inpatient (IN) | payer MEDICAID ==
[2017-02-18] MEDS ORDERED: Acetaminophen 325 MG Tab PO ONE (08:00)
[2017-02-18] MEDS ORDERED: Celecoxib 200 MG Cap PO ONE (08:00)
[2017-02-18] MEDS ORDERED: Gabapentin 300 MG Cap PO ONE (08:00)
[2017-02-18] MEDS ORDERED: Scopolamine 1.5 MG Transdermal Patch TRDERM SCH (08:00)
[2017-02-18] MEDS ORDERED: Acetaminophen 500 MG Tab PO ONE (08:15)
[2017-02-18] MEDS ORDERED: Dextrose 5%-Lactated Ringers 1,000 ML IV SCH ×2 (08:30→16:15)
[2017-02-18] MEDS ORDERED: Dexamethasone 4 MG/ML SDV ONE (09:14)
[2017-02-18] MEDS ORDERED: Propofol 200 MG/20 ML SDV ONE (09:14)
[2017-02-18] MEDS ORDERED: Ondansetron 4 MG/2 ML SDV ONE (09:14)
[2017-02-18] MEDS ORDERED: Succinylcholine/Normal Saline 200 MG/10 ML Syringe ONE (09:14)
[2017-02-18] MEDS ORDERED: Neostigmine Methylsulfate 1 MG/ML 5 ML Syringe ONE (09:14)
[2017-02-18] MEDS ORDERED: Rocuronium 50 MG/5 ML Vial ONE (09:14)
[2017-02-18] MEDS ORDERED: Lidocaine 2% 100 MG/5 ML Syringe IVPUSH ONE (09:30)
[2017-02-18] MEDS ORDERED: Ropivacaine 33 ML, Dexamethasone 8 MG, EPINEPHrine 0.4 MG, Sodium Chloride 0.9% 44.6 ML NERVRT SCH ×4 (09:30)
[2017-02-18] MEDS ORDERED: Ketamine 500 MG/5 ML MDV IV SCH (09:30)
[2017-02-18] MEDS ORDERED: Lidocaine 0.4%/D5W 2 GM/500 ML BAG IV SCH (09:30)
[2017-02-18] MEDS: cefOXitin 2 GM in Sodium Chloride 0.9% 50 ML IV ONE ×2 (11:46→16:20)
[2017-02-18] MEDS: Bupivacaine 0.5%/EPINEPHrine 1:200,000 50 ML MDV ONE ×2 (12:41→14:02)
[2017-02-18] MEDS ORDERED: Meropenem 500 MG SDV IRR ONE (13:50)
[2017-02-18] MEDS ORDERED: Naloxone 0.4 MG/ML SDV IVPUSH PRN (14:29)
[2017-02-18] MEDS: HYDROmorphone/Normal Saline 15 MG/30 ML PCA IV PRN (14:40)
[2017-02-18] MEDS ORDERED: hydrOXYzine HCl 100 MG/2 ML SDV IM ONE (15:10)
[2017-02-18] MEDS ORDERED: Naloxone 0.4 MG/ML SDV IV PRN (16:18)
[2017-02-18] MEDS: SCOPOLAMINE PATCH CHECK TOP SCH (16:21)
[2017-02-18] MEDS ORDERED: Metoclopramide 10 MG/2 ML SDV IVPUSH PRN (17:00)
[2017-02-18] MEDS ORDERED: Ondansetron 4 MG/2 ML SDV IVPUSH PRN (17:00)
[2017-02-18] MEDS ORDERED: MVI, Adult with Vitamin K 10 ML, Thiamine 200 MG, Chromium/Copper/Mang/Selen/Zn 1 ML in... IV SCH ×4 (17:00)
[2017-02-18] MEDS ORDERED: Labetalol 20 MG/4 ML Syringe IVPUSH PRN (17:00)
[2017-02-18] MEDS ORDERED: SCOPOLAMINE PATCH ASK TOP SCH (17:00)
[2017-02-18] MEDS ORDERED: diphenhydrAMINE 50 MG/ML SDV IVPUSH PRN (17:00)
[2017-02-18] MEDS: Pantoprazole 40 MG Vial IVPUSH SCH (17:20)
[2017-02-18] MEDS: cefOXitin 2 GM in Sodium Chloride 0.9% 50 ML IV SCH ×2 (17:24→23:23)
[2017-02-18] MEDS: Acetaminophen 325 MG Tab PO SCH ×2 (17:30→23:20)
[2017-02-18] MEDS: hydrOXYzine HCl 100 MG/2 ML SDV IM PRN (19:21)
[2017-02-18] MEDS: Heparin Sodium 5,000 Units/ML Vial SUBCUT SCH (19:23)
[2017-02-18] MEDS: Gabapentin 300 MG Cap PO SCH (21:29)
[2017-02-19] MEDS: Acetaminophen 325 MG Tab PO SCH ×3 (05:41→17:58)
[2017-02-19] MEDS: cefOXitin 2 GM in Sodium Chloride 0.9% 50 ML IV SCH (05:42)
[2017-02-19] MEDS: Dextrose 5%-Lactated Ringers 1,000 ML IV SCH (08:24)
[2017-02-19] MEDS: Heparin Sodium 5,000 Units/ML Vial SUBCUT SCH ×2 (08:26→21:22)
[2017-02-19] MEDS: Celecoxib 200 MG Cap PO SCH (08:26)
[2017-02-19] MEDS: SCOPOLAMINE PATCH CHECK TOP SCH (08:28)
[2017-02-19] MEDS: Gabapentin 300 MG Cap PO SCH ×2 (08:28→21:22)
[2017-02-19] MEDS: Magnesium Sulfate/Water 2 GM in Premix Bag 1 BAG IV SCH ×3 (09:53→21:22)
[2017-02-19] MEDS: Docusate Sodium 100 MG Cap PO SCH ×2 (09:53→21:22)
[2017-02-19] MEDS: HYDROmorphone/Normal Saline 15 MG/30 ML PCA IV PRN (11:54)
[2017-02-19] MEDS: MVI, Adult with Vitamin K 10 ML, Thiamine 200 MG, Chromium/Copper/Mang/Selen/Zn 1 ML in... IV SCH ×4 (15:59)
[2017-02-19] MEDS: Pantoprazole 40 MG Vial IVPUSH SCH (16:50)
[2017-02-20] MEDS: Acetaminophen 325 MG Tab PO SCH ×2 (02:22→06:56)
[2017-02-20] MEDS: Dextrose 5%-Lactated Ringers 1,000 ML IV SCH (02:22)
[2017-02-20] MEDS: Magnesium Sulfate/Water 2 GM in Premix Bag 1 BAG IV SCH ×3 (04:00→15:21)
[2017-02-20] MEDS: Acetaminophen/oxyCODONE 325-5 MG Tab PO PRN ×5 (07:10→23:56)
[2017-02-20] MEDS: Celecoxib 200 MG Cap PO SCH (07:12)
[2017-02-20] MEDS: Heparin Sodium 5,000 Units/ML Vial SUBCUT SCH ×2 (07:12→20:49)
--- NOTE | 2017-02-20 08:32 | PN ---
DATE OF SERVICE: 02/19/2017 The patient has been afebrile with stable vital signs. She looks comfortable at this point with the present pain management and is tolerating diet. We have backed down the IV rate to 100 mL an hour today. I think we will leave the MANAGER BALANCE going for today in addition to the gabapentin, Celebrex, and Tylenol. Lidocaine infusion was stopped feel somewhat lightheaded and had some visual changes, which did stop after the Lidocaine infusion was discontinued. The CHRIS drain has been relatively minimal, and we will check an amylase on that. Her blood work looks good today, other than the white count of 27,000. This will likely be a result of the operative stress as, otherwise, she certainly looks like there are no significant problems that are ongoing. Carlos Manuel Nguyen MD /[id number]
[2017-02-20] MEDS ORDERED: Cyanocobalamin (Vitamin B12) 1,000 MCG/ML SDV IM ONE (09:00)
[2017-02-20] MEDS ORDERED: Magnesium Hydroxide 400 MG/5 ML Susp 30 ML Cup PO ONE (09:00)
[2017-02-20] MEDS: Gabapentin 300 MG Cap PO SCH ×2 (09:20→20:50)
[2017-02-20] MEDS: Docusate Sodium 100 MG Cap PO SCH ×2 (09:20→20:50)
[2017-02-20] MEDS: SCOPOLAMINE PATCH CHECK TOP SCH (09:22)
[2017-02-20] MEDS ORDERED: Pneumococcal Polyvalent-23 Vaccine 0.5 ML SDV IM ONE (10:00)
[2017-02-20] MEDS ORDERED: Bisacodyl 5 MG Tab PO ONE (10:00)
[2017-02-20] MEDS: MVI, Adult with Vitamin K 10 ML, Thiamine 200 MG, Chromium/Copper/Mang/Selen/Zn 1 ML in... IV SCH ×4 (15:22)
[2017-02-20] MEDS: Pantoprazole 40 MG Tab.CR PO SCH (16:48)
--- NOTE | 2017-02-20 17:32 | PN ---
DATE OF SERVICE: 02/20/2017 The patient has been afebrile with stable vital signs. Overall, appears to be doing fairly well over her oral pain medication today. CHRIS fluid had 400 amylase level and we will recheck that tomorrow morning to determine whether or not we should be likely discharge tomorrow. We will give some bowel stimulation today as well, otherwise maximize activity and work with pulmonary toilet. Carlos Manuel Nguyen MD /[id number]
[2017-02-21] MEDS: Acetaminophen/oxyCODONE 325-5 MG Tab PO PRN ×5 (03:42→23:16)
[2017-02-21] MEDS: Dextrose 5%-Lactated Ringers 1,000 ML IV SCH ×2 (04:05→15:04)
[2017-02-21] MEDS: Heparin Sodium 5,000 Units/ML Vial SUBCUT SCH ×2 (07:43→19:20)
[2017-02-21] MEDS: Celecoxib 200 MG Cap PO SCH (07:43)
[2017-02-21] MEDS ORDERED: Albuterol/Ipratropium 3.0-0.5 MG/3 ML Neb Soln INH PRN (07:46)
[2017-02-21] MEDS: Albuterol/Ipratropium 3.0-0.5 MG/3 ML Neb Soln NEB SCH ×4 (07:54→20:41)
[2017-02-21] MEDS: SCOPOLAMINE PATCH CHECK TOP SCH (08:14)
[2017-02-21] MEDS: Piperacillin/Tazobactam/Dext 3.375 GM in Premix Bag 1 BAG IV SCH ×3 (08:39→19:20)
[2017-02-21] MEDS: Docusate Sodium 100 MG Cap PO SCH ×2 (08:40→20:41)
[2017-02-21] MEDS: Gabapentin 300 MG Cap PO SCH ×2 (08:41→20:41)
--- NOTE | 2017-02-21 09:42 | CR ---
Two-view chest There is a small focal area of infiltrate seen best on the frontal view superimposed over the heart. There is no definite infiltrate on the lateral view. The heart and vascular structures are within n ormal limits. Impression: 1. Left basilar infiltrate. Follow-up is recommended.
[2017-02-21] MEDS: Pantoprazole 40 MG Tab.CR PO SCH (16:36)
--- NOTE | 2017-02-21 17:31 | PN ---
DATE OF SERVICE: 02/21/2017 SUBJECTIVE: Jacquelyn is running a low-grade temperature, had been tachycardiac, and her O2 sats 90%. Her postoperative pain is controlled and remainder of review of systems us negative for any pertinent positives and negatives. She has been up ambulating and using her incentive spirometer. OBJECTIVE: GENERAL: Jacquelyn Blanchard is a 32-year-old female. VITAL SIGNS: TPR is 98.9 with a temperature max for the past 24 hours of 100.3, pulse 100, respirations 12, blood pressure 117/82, and O2 by pulse oximetry is 92%. HEENT: Negative. NECK: Supple. HEART: Regular rate and rhythm. LUNGS: Reveal decreased breath sounds and extensive wheezing. Cough currently is dry. ABDOMEN: Dressings dry and intact. Abdominal binder is on. EXTREMITIES: Without peripheral edema. ASSESSMENT: Laparoscopic drainage of peripancreatic fluid collection on 02/18/2017. PLAN: 1. Sputum culture to have respiratory therapy help collect. 2. Zosyn 3.375 mg IV q.6 hours and DuoNeb q.i.d. and p.r.n. 3. Good pulmonary toilet encouraged. 4. We will evaluate p.r.n. or in a.m. Arianna Gomez PA-C /[id number]
[2017-02-22] MEDS: Piperacillin/Tazobactam/Dext 3.375 GM in Premix Bag 1 BAG IV SCH ×4 (01:15→20:01)
[2017-02-22] MEDS: Dextrose 5%-Lactated Ringers 1,000 ML IV SCH (01:15)
[2017-02-22] MEDS: Acetaminophen/oxyCODONE 325-5 MG Tab PO PRN ×5 (05:20→22:35)
[2017-02-22] MEDS: Albuterol/Ipratropium 3.0-0.5 MG/3 ML Neb Soln NEB SCH ×4 (07:18→20:02)
--- NOTE | 2017-02-22 08:00 | PN ---
DATE OF SERVICE: 02/22/2017 The patient has now been afebrile and her oxygenation is improving. I think we will keep her on one more day of the IV antibiotics, although the sputum culture demonstrate normal respiratory j luis. One more day of working on pulmonary toilet would be worthwhile. I will recheck an amylase level and CHRIS drain tomorrow as well and if that remains low, we will get that pulled and probably home tomorrow. Carlos Manuel Nguyen MD /[id number]
[2017-02-22] MEDS: D5 1/2 NS w/ 20 mEq/L KCl 1,000 ML IV SCH ×2 (08:10→20:12)
[2017-02-22] MEDS: Heparin Sodium 5,000 Units/ML Vial SUBCUT SCH ×2 (08:13→20:01)
[2017-02-22] MEDS: Celecoxib 200 MG Cap PO SCH (08:14)
[2017-02-22] MEDS: Gabapentin 300 MG Cap PO SCH ×2 (08:18→20:01)
[2017-02-22] MEDS: Docusate Sodium 100 MG Cap PO SCH ×2 (08:18→20:01)
[2017-02-22] MEDS: hydrOXYzine HCl 100 MG/2 ML SDV IM PRN ×2 (08:27→20:02)
[2017-02-22] MEDS ORDERED: Ondansetron 4 MG/2 ML SDV IVPUSH PRN (08:40)
[2017-02-22] MEDS ORDERED: Ondansetron 4 MG Tab.DIS PO PRN (08:40)
[2017-02-22] MEDS ORDERED: Scopolamine 1.5 MG Transdermal Patch TRDERM PRN (08:41)
[2017-02-22] MEDS ORDERED: Scopolamine 1.5 MG Transdermal Patch TOP SCH (12:30)
[2017-02-22] MEDS: SCOPOLAMINE PATCH CHECK TOP SCH (13:41)
[2017-02-22] MEDS: Pantoprazole 40 MG Tab.CR PO SCH (17:07)
[2017-02-23] MEDS: Piperacillin/Tazobactam/Dext 3.375 GM in Premix Bag 1 BAG IV SCH ×2 (02:25→07:37)
[2017-02-23] MEDS: Acetaminophen/oxyCODONE 325-5 MG Tab PO PRN ×2 (04:20→08:36)
[2017-02-23 07:10] VITALS: BP 111/66
[2017-02-23] MEDS: Albuterol/Ipratropium 3.0-0.5 MG/3 ML Neb Soln NEB SCH (07:21)
[2017-02-23] MEDS: D5 1/2 NS w/ 20 mEq/L KCl 1,000 ML IV SCH (07:37)
[2017-02-23] MEDS: Heparin Sodium 5,000 Units/ML Vial SUBCUT SCH (07:40)
[2017-02-23] MEDS: Celecoxib 200 MG Cap PO SCH (07:40)
[2017-02-23] MEDS: Gabapentin 300 MG Cap PO SCH (08:38)
[2017-02-23] MEDS: Docusate Sodium 100 MG Cap PO SCH (08:38)
[2017-02-23] MEDS: SCOPOLAMINE PATCH CHECK TOP SCH (08:38)
--- NOTE | 2017-02-23 08:45 | OR ---
DATE OF PROCEDURE: 02/18/2017 PREOPERATIVE DIAGNOSIS: Peripancreatic fluid collection associated with ongoing abdominal pain. POSTOPERATIVE DIAGNOSES: Peripancreatic fluid collection associated with ongoing abdominal pain and a focal peripancreatic soft tissue necrosis. OPERATIVE PROCEDURE: Diagnostic Laparoscopy converted to limited laparotomy with: 1. Drainage of peripancreatic fluid collection (86701). 2. Debridement of focal necrotic peripancreatic fat (27017). 3. Intraabdominal ultrasound of the upper abdomen (71033). ANESTHESIA: General. ATTORNEY GENERAL: Arianna Gomez PA-C. INDICATION FOR PROCEDURE: The patient is status post a total gastrectomy for presumed inflammatory disease at the end of the stomach and duodenum, refractory to medical management. This was done early December. Over the last two weeks, she has had some ongoing upper abdominal discomfort. A CT scan obtained last week showed a fairly large fluid collection anterior to the pancreas and somewhat superior to the course of the transverse colon. On examination, this was the area where the patient was particularly tender and this appeared to be inflammatory fluid collection perhaps related to some leakage of the pancreatic fluid as the stomach and duodenum were dissected off that area of the pancreas during the course of the total gastrectomy, will attempt to proceed with this laparoscopically, but she is aware of possible need for open laparotomy. Potential risks including bleeding, infection, injury to the viscera in the area of possible development pancreatic fistula postoperatively as well as some continued pain in the postoperative period were reviewed along with the remote possibility of cardiopulmonary, septic, or hemorrhagic complications leading to and the patient wishes to proceed. DETAILS OF PROCEDURE: The patient was taken to the operating room and after general endotracheal anesthesia was induced, placed in a lithotomy position. Bill catheter was inserted. Bilateral transverse abdominis plane blocks were placed using the usual solution. This was done with continuous ultrasound guidance and these were in the subcostal position. Following this, the abdomen and chest wall were then prepped and draped. The patient has a ventricular peritoneal shunt in place for treatment of pseudotumor cerebri to prevent any possibility of CO2 extending into the MEDICAL RADIATION TECH, a small incision was made over the shunt in the upper chest wall, this same incision was used last time which had healed and the soft tissue around the shunt at that level was dissected free, but not entirely cleared off the shunt as well as to minimize chances of becoming infected. A mosquito clamp was placed across the shunt and a sterile drape placed over that as well at this point. Upon completion of the procedure, the clamp was removed and the incision was closed with 4-0 Vicryl skin stitch. At this point, a transverse incision in the right lower quadrant was made and the peritoneal cavity entered under direct vision with Optiview trocar. Additional 12 mm trocar was then placed in the left lower quadrant and the two 5 mm trocars were placed, one on the right and one on the left mid abdomen. The area of the concern was then confirmed by CT scan, to be more or less just inferior to the area of the falciform ligament where it comes in to the liver. Initially, the omentum over this was dissected free with a combination of blunt and Harmonic scalpel dissection. Eventually, the fluid collection was entered. This was somewhat wynn appearing fluid and was sent for cultures, although there did not appear to be overly infected. There was some fat necrosis in the area of both superior and inferior to the pancreas, which was debrided most of this came into the suction apparatus as the suction was used quite frequently to aid in the dissection. The pancreas itself appeared to be otherwise intact. At this point, it was felt to be probably needed to an ultrasound to make sure there were not any additional fluid collections in that area. Percutaneously, the ultrasound could not be completed due to dissection of CO2 into the subcutaneous tissues more or less obscuring the view through the abdominal wall. Given this, a small epigastric incision was made and carried down through the full-thickness abdominal wall and the ultrasound probe was then replaced into the upper abdomen and around the pancreas was examined and no remaining fluid was present. At this point, a Vitaliy-Moses drain was taken out through a stab wound in the left mid abdomen, this being one of the final trocar sites and placed across the anterior aspect of the pancreatic neck and head with fluid had been accumulated and the midline fascia was approximated with #2 Vicryl stitch. The fascia at the 12 mm sites also then closed with 0 Vicryl stitch and the skin at each of the sites closed with a 4-0 Vicryl skin stitch. As mentioned above, there was a temporary ligation of the POULTRYMAN shunt. Incision was also closed at this time. The patient was taken to the recovery room in satisfactory condition. Physician certified medical assistant, Arianna Gomez, played an essential role in assisting in this case, helping to position the patient, retract structures as needed, as well as suturing and cutting sutures when indicated. Her presence improved the patient's safety and decreased the operative time. Carlos Manuel Nguyen MD /[id number]
--- NOTE | 2017-02-24 08:41 | DISCH ---
ADMISSION DIAGNOSES: Postprandial abdominal pain, status post Walter-en-Y gastric bypass surgery; ventriculoperitoneal shunt; history of gastroesophageal reflux disease; unspecified surgical malabsorption, B12 deficiency; iron deficiency anemia; and pseudotumor cerebri. DISCHARGE DIAGNOSES: Temporary ligation of GOVERNMENT AFFAIRS MANAGER shunt; diagnostic laparoscopy converted to mini laparotomy for drainage of peripancreatic inflammatory fluid collection; debridement of focal mesenteric peritoneal fat, and intraabdominal ultrasound for status post GOVERNMENT AFFAIRS MANAGER shunt, peripancreatic fluid collection, focal peripancreatic soft tissue necrosis. Date of surgery was 02/18/2017. HISTORY: Jacquelyn Blanchard is a 32-year-old female with persistent abdominal pain after she had a diagnostic lap with lysis of adhesion, resection and revision of the jejunostomy, total gastrectomy with Walter-en-Y esophagojejunostomy and gastrostomy to facilitate esophagojejunostomy. PHYSICAL EXAMINATION: GENERAL: Jacquelyn is a 32-year-old female. VITAL SIGNS: Height is 5 feet 2 inches. Weight is 143 pounds. TPR is 98.4, 86, 16, and blood pressure 111/66. HEENT: Negative. NECK: Supple. HEART: Regular rate and rhythm. LUNGS: Clear. ABDOMEN: Juliette intact. She has one CHRIS drain and that is draining a cloudy milky drainage. Over the past 24 hours, the CHRIS drain amount was 12 mL. Amylase tested at 2420. Abdominal binder otherwise has been on. EXTREMITIES: Without peripheral edema. DISPOSITION: Discharged to home. CONDITION: Stable and improving. FOLLOWUP: Followup appointment with Carlos Manuel Nguyen MD, at [facility] on 03/02/2017 at 8:30 a.m. MEDICATIONS: Home medications; 1. Percocet 5/325 mg 1 to 2 p.o. q.4 hours p.r.n. pain. 2. Celebrex 200 mg daily, #14. 3. Zofran ODT 4 mg q.4 hours p.r.n. nausea. 4. She is to resume her home medications. DISCHARGE DIET: Step-4 gastric bypass diet. ACTIVITY: As tolerated. No lifting greater than 10 pounds for 6 weeks. Driving, do not drive while on pain medication. Shower/bathing, may shower. DISCHARGE INSTRUCTIONS: Notify provider if any fever, increased pain, nausea, or vomiting. Wound incision care, keep site clean and dry. Wear abdominal binder for 2 weeks and then as tolerated. Special instructions; use incentive spirometer 10 times every hour while awake for 2 weeks. She is to strip, measure, empty, and record CHRIS drains 4 times a day and bring record to clinic appointment.
== END 2017-02-23 09:25 | disposition home or self-care (01) | DRG 264 ==
LOC: JP.SDS 06:43 → JP.MS 06:43 → UNDOADMIN 06:43 → EDSTATUS 09:30 → JP.2SS 15:30 → JP.MS 15:30
PROVIDERS: ADMIT Surgery; ATTEND Surgery
DX: R18.8 Other ascites (principal); M79.89 Other specified soft tissue disorders; Z98.2 Presence of cerebrospinal fluid drainage device; K91.2 Postsurgical malabsorption, not elsewhere classified; Z98.84 Bariatric surgery status; Z98.0 Intestinal bypass and anastomosis status; Z90.3 Acquired absence of stomach [part of]
CPT/HCPCS: 36415; 71020; 71020-26; 80053; 82150; 82728; 83690; 83735; 84100; 85027; 87070; 87205; 90732; 94640; 94640-76; 94762; A9270-GY; C9113; J0171; J0694; J1100; J1170; J1644; J2001; J2185; J2405; J2543; J2704; J2795; J3010; J3410; J3411; J3420; J3475; J3480; J7030; J7042; J7050; J7620

== ENCOUNTER 2017-02-28 11:59 | Emergency (ER) | payer MEDICAID ==
[2017-02-28 12:10] VITALS: BP 136/85
--- NOTE | 2017-02-28 12:54 | EDM.PDOC ---
ED HPI GENERAL MEDICAL PROBLEM - General Chief Complaint: Abdominal Pain Stated Complaint: SORE AND PAINFUL AROUND SURGERY SITE Time Seen by Provider: 02/28/17 12:25 Source of Information: Reports: Patient History Limitations: Reports: No Limitations - History of Present Illness INITIAL COMMENTS - FREE TEXT/NARRATIVE: Jacquelyn presents today with complaints of incisional pain of abdomen and right upper chest. She reports the pain is burning in nature. Onset: Gradual Location: Reports: Chest, Abdomen Quality: Reports: Burning Improves with: Reports: None Worsens with: Reports: None Upper Epigastric Pain Score (Numeric/FACES): 10 - Related Data Allergies Allergy/AdvReac Type Severity Reaction Status Date / Time Sulfa (Sulfonamide Allergy Cannot Verified 02/18/17 08:21 Antibiotics) Remember environmental Allergy Cannot Uncoded 02/18/17 08:21 Remember phosphate Allergy Anaphylactic Uncoded 02/18/17 08:21 Shock Home Meds: Home Meds Doxepin [SINEquan] 30 mg PO BEDTIME 12/28/16 [History] Gabapentin [Neurontin] 100 mg PO QID 12/28/16 [History] Omeprazole 40 mg PO DAILY 12/28/16 [History] Topiramate [Topamax] 25 mg PO QID 12/28/16 [History] Cholecalciferol (Vitamin D3) [Vitamin D3] 5,000 unit PO DAILY 01/05/17 [History] Cyanocobalamin/Folic Acid [B-12 1,000 Mcg Sub Tablet] 1 tab SL DAILY 01/05/17 [ History] Fluticasone Propionate [Flonase] 1 spray NS DAILY 01/05/17 [History] Iron,Carbonyl/Ascorbic Acid [Vitron-C Tablet] 1 each PO DAILY 01/05/17 [History] metFORMIN [Glucophage] 850 mg PO BIDMEALS 01/05/17 [History] Pantoprazole Sodium [Protonix] 40 mg PO DAILY 01/14/17 [History] Vitamin B Complex/Folic Acid [Complex B-100 ER Caplet] 0.4 mg PO DAILY 01/14/17 [History] Acetaminophen [Tylenol] 650 mg PO Q6H #100 tablet 01/21/17 [Rx] Ondansetron [Zofran ODT] 4 mg PO Q4H PRN #30 tab.dis 01/21/17 [Rx] Cetirizine [ZyrTEC] 10 mg PO DAILY 02/18/17 [History] Pediatric Multivit Comb No.42 [Flintstones] 1 tab PO BID 02/18/17 [History] Celecoxib [CeleBREX] 200 mg PO DAILY@0800 #14 cap 02/23/17 [Rx] Ondansetron [Zofran ODT] 4 mg PO Q4H PRN #30 tab.dis 02/23/17 [Rx] Past Medical History HEENT History: Reports: Allergic Rhinitis, Impaired Vision Respiratory History: Reports: Bronchitis, Recurrent Gastrointestinal History: Reports: Cholelithiasis, Chronic Constipation, Chronic Diarrhea, Gastritis, GERD, Hemorrhoids, Irritable Bowel Syndrome, Pancreatitis, Other (See Below) Other Gastrointestinal History: fluid around pancreas Genitourinary History: Reports: UTI, Recurrent 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 EDITOR History: Reports: Polycystic Ovaries Musculoskeletal History: Reports: Fracture Other Musculoskeletal History: Right hand, right middle finger Neurological History: Reports: Migraines Other Neuro History: Pseudotumor cerebril Psychiatric History: Reports: Anxiety, Depression Hematologic History: Reports: Anemia, B12 Deficiency, Iron Deficiency Other Hematologic History: Iron infusion done at clinic Dermatologic History: Reports: Psoriasis, Other (See Below) Other Dermatologic History: rash under right breast - Infectious Disease History Infectious Disease History: Reports: Chicken Pox - Past Surgical History Head Surgeries/Procedures: Reports: Shunt HEENT Surgical History: Reports: None Respiratory Surgical History: Reports: None GI Surgical History: Reports: Bariatric Procedure, Cholecystectomy, Colonoscopy , EGD Other GI Surgeries/Procedures: 9yr RNY. 8yr Elizabeth, RANDY, partial gastrectomy Female Surgical History: Reports: Breast Biopsy Other Female Surgeries/Procedures: Left breast cyst removed now has chronic nerve pain in that breast. Neurological Surgical History: Reports: Other (See Below) Other Neurological Surgeries/Procedures: vp talent management shunt Musculoskeletal Surgical History: Reports: None Dermatological Surgical History: Reports: None Social & Family History - Tobacco Use Smoking Status *Q: Current Every Day Smoker Years of Tobacco use: 15 Packs/Tins Daily: 0.5 Used Tobacco, but Quit: No Month Tobacco Last Used: January Second Hand Smoke Exposure: No - Caffeine Use Caffeine Use: Reports: Coffee - Recreational Drug Use Recreational Drug Use: No ED ROS GENERAL - Review of Systems Review Of Systems: See Below Constitutional: Denies: Fever, Chills, Malaise, Weakness HEENT: Reports: No Symptoms Respiratory: Denies: Shortness of Breath, Wheezing, Cough, Sputum Cardiovascular: Reports: Other (Incisional pain to right upper chest. ). Denies : Chest Pain, Dyspnea on Exertion, Edema, Lightheadedness, Palpitations, PND, Syncope Endocrine: Reports: No Symptoms GI/Abdominal: Reports: Abdominal Pain, Other (Pain to abdominal incision and CHRIS drain site. ). Denies: Black Stool, Bloody Stool, Constipation, Diarrhea, Distension, Nausea, Vomiting : Denies: Dysuria, Flank Pain, Frequency, Hematuria, Incontinence, Pain, Urgency, Urinary Retention Musculoskeletal: Reports: No Symptoms Skin: Reports: No Symptoms Neurological: Denies: Headache, Numbness, Tingling, Weakness Psychiatric: Reports: No Symptoms Hematologic/Lymphatic: Reports: No Symptoms Immunologic: Reports: No Symptoms ED EXAM, GI/ABD - Physical Exam Exam: See Below Text/Narrative:: Jacquelyn is an alert, oriented 32 year old female presenting for complaints of pain to her incision sites. She reports she went to the clinic today with complaint of pain and was instructed to come to the ER. She states use of acetaminophen, gabapenting and celebrex have not helped her pain. She is out of oxycodone. Exam Limited By: No Limitations General Appearance: Alert, WD/WN, No Apparent Distress Eyes: Bilateral: Normal Appearance, EOMI Ears: Normal External Exam, Normal Canal, Hearing Grossly Normal, Normal TMs Nose: Normal Inspection, Normal Mucosa, No Blood Throat/Mouth: Normal Inspection, Normal Lips, Normal Teeth, Normal Gums, Normal Oropharynx, Normal Voice, No Airway Compromise, Other (Multiple piercings in place, no signs of infection. Healing, scabbed over lesions to chin. ) Head: Atraumatic, Normocephalic Neck: Normal Inspection, Supple, Non-Tender, Full Range of Motion. No: Lymphadenopathy (R), Lymphadenopathy (L) Respiratory/Chest: No Respiratory Distress, Lungs Clear, Normal Breath Sounds, No Accessory Muscle Use, Chest Non-Tender Cardiovascular: Normal Peripheral Pulses, Regular Rate, Rhythm, No Edema, No Gallop, No Murmur, No Rub GI/Abdominal Exam: Normal Bowel Sounds, Soft, No Organomegaly, No Distention, Tender, Other (tenderness to incision sites. CHRIS drain intact, draining thick serosanguinous fluid in small amounts. ). No: Guarding, Rigid, Rebound, Hernia Back Exam: Normal Inspection, Full Range of Motion. No: CVA Tenderness (R), CVA Tenderness (L) Neurological: Alert, Oriented, CN II-XII Intact, Normal Cognition, Normal Gait, No Motor/Sensory Deficits Psychiatric: Normal Affect, Normal Mood Skin Exam: Warm, Dry, Intact, Normal Color, No Rash Lymphatic: No Adenopathy Course - Vital Signs Last Recorded V/S: Last Vital Signs Temp 36.9 C 02/28/17 12:09 Pulse 97 02/28/17 12:09 Resp 14 02/28/17 12:09 BP 136/85 02/28/17 12:09 Pulse Ox 99 02/28/17 12:09 - Re-Assessments/Exams Free Text/Narrative Re-Assessment/Exam: 02/28/17 13:09 Arianna Hadley NP contacted about patient status, report on assessment completed. She is in agreement with plan to provide additional pain medication in limited supply and have patient report to clinic visit as planned. Departure - Departure Time of Disposition: 12:51 Disposition: Home, Self-Care 01 Condition: Fair Clinical Impression: Abdominal pain, Pain at surgical site, Status post laparoscopic surgery - Discharge Information Instructions: Pain Medicine Instructions, [id number] Referrals: Carlos Manuel Nguyen MD [Primary Care Provider] - Forms: ED Department Discharge Additional Instructions: Keep hydrated. Continue to keep incision sites dry, clean. Keep follow up appointment with Dr. Nguyen this Tuesday. You are provided Percocet 5/325mg tablet, one to two tablet PO every 6 hours for pain #10 per Arianna Gomez NP instruction. Report to clinic, ER for worsening of pain, fever or chills. - Assessment/Plan Assessment:: Post-surgical laparoscopic abdominal pain at incision sites. No fever, chills, change in bowel or bladder habits. Patient reports she took oxycodone every 4 hours due to pain, she is out. Plan: Patient status, assessment discussed with Arianna Hadley NP. Patient discharged to home. Keep hydrated. Continue to keep incision sites dry, clean. Keep follow up appointment with Dr. Nguyen this Tuesday. She was provided hard copy scrpt for Percocet 5/325mg tablet, one to two tablet PO every 6 hours for pain #10 per Arianna Gomez NP instruction. Report to clinic, ER for worsening of pain, fever or chills.
== END 2017-02-28 13:07 | disposition home or self-care (01) ==
LOC: JP.ED 11:59
DX: G89.18 Other acute postprocedural pain (principal); R10.9 Unspecified abdominal pain; R07.9 Chest pain, unspecified; G43.909 Migraine, unspecified, not intractable, without status migrainosus; F41.9 Anxiety disorder, unspecified; F17.210 Nicotine dependence, cigarettes, uncomplicated; F32.9 Major depressive disorder, single episode, unspecified; Z90.49 Acquired absence of other specified parts of digestive tract; Z88.2 Allergy status to sulfonamides; Z91.048 Other nonmedicinal substance allergy status; Z79.84 Long term (current) use of oral hypoglycemic drugs; Z79.899 Other long term (current) drug therapy; Z87.440 Personal history of urinary (tract) infections
CPT/HCPCS: 99284

== ENCOUNTER 2017-03-03 15:37 | Emergency (ER) | payer MEDICAID ==
[2017-03-03] MEDS ORDERED: Doxycycline 100 MG Cap PO ONE (19:50)
[2017-03-03 20:01] VITALS: BP 123/76
--- NOTE | 2017-03-03 20:05 | EDM.PDOC ---
ED HPI GENERAL MEDICAL PROBLEM - General Chief Complaint: Abdominal Pain Stated Complaint: ABDOMINAL PAIN-SDS ON Time Seen by Provider: 03/03/17 18:03 Source of Information: Reports: Patient History Limitations: Reports: No Limitations - History of Present Illness INITIAL COMMENTS - FREE TEXT/NARRATIVE: History of present illness: [32-year-old female who is presenting here with a history of recent abdominal surgery with Dr. Nguyen is a drain in CHRIS drain. She was in the clinic yesterday tim were removed and Steri-Strips placed on her midline incision now she is presenting complaining of abdominal pain and the inferior portion of that midline incision has opened up and is erythematous and warm and indurated and so she is presenting here. She has not filled her prescription for doxycycline that was given to her yesterday. She's had no fever or chills with this.] Review of systems: As per history of present illness and below otherwise all systems reviewed and negative. Past medical history: As per history of present illness and as reviewed below otherwise noncontributory. Surgical history: As per history of present illness and as reviewed below otherwise noncontributory. Social history: No reported history of drug or alcohol abuse. Family history: As per history of present illness and as reviewed below otherwise noncontributory. Physical exam: HEENT: Atraumatic, normocephalic, Lungs: Clear to auscultation Heart: S1S2, regular Abdomen: Her abdomen is soft she has a midline incision the inferior portion of which is opened and about 1 cm there is surrounding erythema and induration and some warmth and some necrotic debris within the wound. All this looks localized. Extremities: Atraumatic, negative for cords or calf pain. Neurovascular unremarkable. Neuro: Awake, alert, oriented. Exam nonfocal. Diagnostics: [CBC shows slightly elevated white count and her platelets are 610 and C- reactive protein is up some. I did speak with Dr. Nguyen who recommended that we dress the wound and have her follow-up in the clinic tomorrow and have the surgical nurses evaluate her wound and screen her for any serious problems or concerns] Therapeutics: [By mouth doxycycline 200 mg was given] Impression: [Localized surgical wound infection] Plan: [As of stated she's to follow-up in the surgical clinic tomorrow and have the surgical nurses evaluate her and screen her for any consultations or serious problems. They can also help address her wound and how to manage that.] Definitive disposition and diagnosis as appropriate pending reevaluation and review of above. Right Middle Abdominal Pain Score (Numeric/FACES): 9 - Related Data Allergies Allergy/AdvReac Type Severity Reaction Status Date / Time Sulfa (Sulfonamide Allergy Cannot Verified 02/18/17 08:21 Antibiotics) Remember environmental Allergy Cannot Uncoded 02/18/17 08:21 Remember phosphate Allergy Anaphylactic Uncoded 02/18/17 08:21 Shock Home Meds: Home Meds Doxepin [SINEquan] 30 mg PO BEDTIME 12/28/16 [History] Gabapentin [Neurontin] 100 mg PO QID 12/28/16 [History] Omeprazole 40 mg PO DAILY 12/28/16 [History] Topiramate [Topamax] 25 mg PO QID 12/28/16 [History] Cholecalciferol (Vitamin D3) [Vitamin D3] 5,000 unit PO DAILY 01/05/17 [History] Cyanocobalamin/Folic Acid [B-12 1,000 Mcg Sub Tablet] 1 tab SL DAILY 01/05/17 [ History] Fluticasone Propionate [Flonase] 1 spray NS DAILY 01/05/17 [History] Iron,Carbonyl/Ascorbic Acid [Vitron-C Tablet] 1 each PO DAILY 01/05/17 [History] metFORMIN [Glucophage] 850 mg PO BIDMEALS 01/05/17 [History] Pantoprazole Sodium [Protonix] 40 mg PO DAILY 01/14/17 [History] Vitamin B Complex/Folic Acid [Complex B-100 ER Caplet] 0.4 mg PO DAILY 01/14/17 [History] Acetaminophen [Tylenol] 650 mg PO Q6H #100 tablet 01/21/17 [Rx] Ondansetron [Zofran ODT] 4 mg PO Q4H PRN #30 tab.dis 01/21/17 [Rx] Cetirizine [ZyrTEC] 10 mg PO DAILY 02/18/17 [History] Pediatric Multivit Comb No.42 [Flintstones] 1 tab PO BID 02/18/17 [History] Celecoxib [CeleBREX] 200 mg PO DAILY@0800 #14 cap 02/23/17 [Rx] Ondansetron [Zofran ODT] 4 mg PO Q4H PRN #30 tab.dis 02/23/17 [Rx] Past Medical History HEENT History: Reports: Allergic Rhinitis, Impaired Vision Respiratory History: Reports: Bronchitis, Recurrent Gastrointestinal History: Reports: Cholelithiasis, Chronic Constipation, Chronic Diarrhea, Gastritis, GERD, Hemorrhoids, Irritable Bowel Syndrome, Pancreatitis, Other (See Below) Other Gastrointestinal History: fluid around pancreas Genitourinary History: Reports: UTI, Recurrent 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: Polycystic Ovaries Musculoskeletal History: Reports: Fracture Other Musculoskeletal History: Right hand, right middle finger Neurological History: Reports: Migraines Other Neuro History: Pseudotumor cerebril Psychiatric History: Reports: Anxiety, Depression Hematologic History: Reports: Anemia, B12 Deficiency, Iron Deficiency Other Hematologic History: Iron infusion done at clinic Dermatologic History: Reports: Psoriasis, Other (See Below) Other Dermatologic History: rash under right breast - Infectious Disease History Infectious Disease History: Reports: Chicken Pox - Past Surgical History Head Surgeries/Procedures: Reports: Shunt HEENT Surgical History: Reports: None Respiratory Surgical History: Reports: None GI Surgical History: Reports: Bariatric Procedure, Cholecystectomy, Colonoscopy , EGD Other GI Surgeries/Procedures: 9yr RNY. 8yr Elizabeth, RANDY, partial gastrectomy Female Surgical History: Reports: Breast Biopsy Other Female Surgeries/Procedures: Left breast cyst removed now has chronic nerve pain in that breast. Neurological Surgical History: Reports: Other (See Below) Other Neurological Surgeries/Procedures: vp human resources shunt Musculoskeletal Surgical History: Reports: None Dermatological Surgical History: Reports: None Social & Family History - Tobacco Use Smoking Status *Q: Unknown Ever Smoked Years of Tobacco use: 15 Packs/Tins Daily: 0.5 Used Tobacco, but Quit: No Month Tobacco Last Used: January Second Hand Smoke Exposure: No - Caffeine Use Caffeine Use: Reports: Coffee - Recreational Drug Use Recreational Drug Use: No ED ROS GENERAL - Review of Systems Review Of Systems: ROS reveals no pertinent complaints other than HPI. ED EXAM, GI/ABD - Physical Exam Exam: See Below Course - Vital Signs Last Recorded V/S: Last Vital Signs Temp 36.3 C 03/03/17 17:38 Pulse 86 03/03/17 17:38 Resp 15 03/03/17 17:38 BP 118/80 03/03/17 17:38 Pulse Ox 98 03/03/17 17:38 - Orders/Labs/Meds Labs: Laboratory Tests 03/03/17 03/03/17 03/03/17 Range/Units 18:15 18:15 18:15 WBC 12.5 H (4.5-11.0) K/uL RBC 4.64 (3.30-5.50) M/uL Hgb 14.1 D (12.0-15.0) g/dL Hct 42.8 (36.0-48.0) % MCV 92 (80-98) fL MCH 30 (27-31) pg MCHC 33 (32-36) % Plt Count 610 H (150-400) K/uL Neut % (Auto) 74 H (36-66) % Lymph % (Auto) 10 L (24-44) % Hopkins % (Auto) 7 H (2-6) % Eos % (Auto) 8 H (2-4) % Baso % (Auto) 1 (0-1) % Sodium 139 L (140-148) mmol/L Potassium 4.3 (3.6-5.2) mmol/L Chloride 102 (100-108) mmol/L Carbon Dioxide 28 (21-32) mmol/L Anion Gap 13.3 (5.0-14.0) mmol/L BUN 7 (7-18) mg/dL Creatinine 0.9 (0.6-1.0) mg/dL Est Cr Clr Drug Dosing 72.29 mL/min Estimated GFR (MDRD) > 60 (>60) Glucose 96 (74-106) mg/dL Lactic Acid 1.2 (0.4-2.0) mmol/L Calcium 9.3 (8.5-10.1) mg/dL Total Bilirubin 0.3 (0.2-1.0) mg/dL AST 16 (15-37) U/L ALT 15 (12-78) U/L Alkaline Phosphatase 108 (46-116) U/L C-Reactive Protein 7.18 H (0.0-0.3) mg/dL Total Protein 8.3 H (6.4-8.2) g/dL Albumin 2.9 L (3.4-5.0) g/dL Globulin 5.4 H (2.3-3.5) g/dL Albumin/Globulin Ratio 0.5 L (1.2-2.2) Meds: Medications Discontinued Medications Generic Name Dose Route Start Last Admin Trade Name Kylah PRN Reason Stop Dose Admin Doxycycline Hyclate 200 mg 03/03/17 19:50 03/03/17 19:57 Vibramycin PO 03/03/17 19:51 200 mg ONETIME ONE Administration Departure - Departure Time of Disposition: 20:05 Disposition: Home, Self-Care 01 Condition: Good Clinical Impression: Surgical wound infection Qualifiers: Encounter type: initial encounter Qualified Code(s): T81.4XXA - Infection following a procedure, initial encounter - Discharge Information Forms: ED Department Discharge Additional Instructions: Please go to the surgical clinic tomorrow and have the surgical nurses evaluate your wound and they will help you in knowing how to manage your wound and help it to heal properly and minimize any infection. Please fill your prescription for doxycycline and begin taking as prescribed.
== END 2017-03-03 20:28 | disposition home or self-care (01) ==
LOC: JP.ED 15:37
DX: T81.4XXA Infection following a procedure, initial encounter (principal); Z98.890 Other specified postprocedural states; Z79.899 Other long term (current) drug therapy; Z88.2 Allergy status to sulfonamides; Z91.09 Other allergy status, other than to drugs and biological substances
CPT/HCPCS: 36415; 80053; 83605; 85025; 86140; 99284; A9270

== ENCOUNTER 2017-03-18 08:00 | Day surgery (SDC) | payer MEDICAID ==
[~2017-03-18 08:00] MED LIST changes: -Bupivacaine 0.5%/EPINEPHrine 1:200,000 50 ML MDV ONE; +Midazolam 1 MG/ML 2 ML SDV ONE; +Propofol 200 MG/20 ML SDV ONE; +fentaNYL 100 MCG/2 ML SDV ONE
[2017-03-18] MEDS ORDERED: Cyanocobalamin (Vitamin B12) 1,000 MCG/ML SDV IM ONE (08:30)
[2017-03-18] MEDS ORDERED: Lactated Ringers 1,000 ML IV ONE (08:30)
[2017-03-18] MEDS ORDERED: Bupivacaine 0.5% 50 ML MDV ONE (08:39)
[2017-03-18] MEDS ORDERED: Lidocaine 1% with EPINEPHrine 1:100,000 50 ML MDV ONE (08:39)
[2017-03-18] MEDS ORDERED: Glycopyrrolate 0.2 MG/ML 2 ML SDV IVPUSH ONE (09:30)
[2017-03-18] MEDS ORDERED: MVI, Adult with Vitamin K 10 ML, Thiamine 200 MG, Chromium/Copper/Mang/Selen/Zn 1 ML in... IV ONE ×4 (09:30)
[2017-03-18] MEDS ORDERED: HYDROmorphone 1 MG/ML Syringe IVPUSH ONE (10:22)
[2017-03-18] MEDS ORDERED: Acetaminophen/HYDROcodone 325-5 MG Tab PO ONE (11:50)
[2017-03-18 12:11] VITALS: BP 99/64
--- NOTE | 2017-03-21 13:51 | OR ---
DATE OF PROCEDURE: 03/18/2017 PREOPERATIVE DIAGNOSES: Nausea and epigastric pain. POSTOPERATIVE DIAGNOSIS: Mild pouch gastritis. PROCEDURES: Upper gastrointestinal endoscopy with biopsies of the pouch for CLOtest. ANESTHESIA: IV sedation. INDICATION FOR PROCEDURE: This is a 32-year-old, status post previous Walter-en-Y gastric bypass, sequentially had a completion gastrectomy for ongoing gastritis and/or duodenitis and had developed a peripancreatic fluid collection which was drained by the small open procedure. The patient presents now with worsening epigastric pain and dysphagia. Plan is to proceed with upper GI endoscopy with biopsies and dilation as indicated. Potential risks including bleeding and perforation were discussed, and the patient wishes to proceed. DETAILS OF THE PROCEDURE: The patient was taken to the operating room and placed in a left lateral decubitus position. IV sedation was administered, after which the upper GI endoscope was passed orally through the length of the esophagus into the gastric pouch and from there through the gastrojejunostomy roughly 20 cm into the Walter-en-Y limb. Findings included normal esophagus and EG junction and there was some perhaps very mild redness and edema of the gastric pouch. There was no inflammation or stricturing of the gastrojejunostomy and the Walter limb was unremarkable. At this point, biopsies were obtained for the CLOtest and at the gastric pouch and minimal bleeding from the biopsy sites was seen. The procedure was then concluded with removal of the scope. The patient will be instructed to chew her food up a little bit better, and go a little bit slow in terms of eating. Things certainly should be getting through that anastomosis without difficulty. The patient was placed in a supine position. The incision which has had a partially drained component to it, was opened at the skin and subcutaneous tissue bluntly without difficulty. This facilitated both the wound care and finally we will see the patient back on 03/30/2017 days for followup. Carlos Manuel Nguyen MD /[id number]
== END 2017-03-18 12:08 | disposition home or self-care (01) ==
LOC: JP.SDS 08:00
PROVIDERS: ATTEND Surgery
DX: K29.70 Gastritis, unspecified, without bleeding (principal); K21.9 Gastro-esophageal reflux disease without esophagitis; Z90.3 Acquired absence of stomach [part of]
CPT/HCPCS: 36415; 43239; 80053; 82150; 83735; 84100; 85027; 87081; A9270; J1170; J2250; J2704; J3010; J3411; J3420; J7120; J3490

== ENCOUNTER 2017-03-28 16:29 | Emergency (ER) | payer MEDICAID ==
[2017-03-28 16:42] VITALS: BP 123/81
[2017-03-28] MEDS ORDERED: Sodium Chloride 0.9% 10 ML Syringe FLUSH PRN (16:54)
[2017-03-28] MEDS ORDERED: HYDROmorphone 1 MG/ML Syringe IVPUSH ONE (16:55)
[2017-03-28] MEDS ORDERED: Ondansetron 4 MG/2 ML SDV IVPUSH ONE (16:55)
--- NOTE | 2017-03-28 16:58 | EDM.PDOC ---
ED HPI GENERAL MEDICAL PROBLEM - General Chief Complaint: Abdominal Pain Stated Complaint: PAIN FROM SURGERY Time Seen by Provider: 03/28/17 16:50 Source of Information: Reports: Patient History Limitations: Reports: No Limitations - History of Present Illness INITIAL COMMENTS - FREE TEXT/NARRATIVE: Jacquelyn is a 32 year old female who presents to the ED today with c/o abdominal/ incisional pain. Patient is a gastric bypass patient of about 7 years ago who recently had abdominal surgery done secondary to chronic pain, there was tunneling involved and now patient is healing by secondary intention and has been packing her wounds at home daily. Patient reports the pain has been tolerable until today when she nearly passed out with her dressing change. Patient denies any fever, she endorses nausea and vomiting since yesterday. Patient reports she has been having normal bowel movements and denies any urinary complaints. Patient is not currently on any antibiotics. She is prescribed [place] for pain but states she did not take any today. Onset: Today Middle Abdomen Pain Score (Numeric/FACES): 10 - Related Data Allergies Allergy/AdvReac Type Severity Reaction Status Date / Time Sulfa (Sulfonamide Allergy Cannot Verified 02/18/17 08:21 Antibiotics) Remember phosphate Allergy Severe Anaphylactic Uncoded 03/18/17 10:24 Shock environmental Allergy Cannot Uncoded 02/18/17 08:21 Remember Home Meds: Home Meds Doxepin [SINEquan] 30 mg PO BEDTIME 12/28/16 [History] Gabapentin [Neurontin] 100 mg PO QID 12/28/16 [History] Topiramate [Topamax] 25 mg PO QID 12/28/16 [History] Cholecalciferol (Vitamin D3) [Vitamin D3] 5,000 unit PO DAILY 01/05/17 [History] Cyanocobalamin/Folic Acid [B-12 1,000 Mcg Sub Tablet] 1 tab SL DAILY 01/05/17 [ History] Fluticasone Propionate [Flonase] 1 spray NS DAILY 01/05/17 [History] Iron,Carbonyl/Ascorbic Acid [Vitron-C Tablet] 1 each PO DAILY 01/05/17 [History] metFORMIN [Glucophage] 850 mg PO BIDMEALS 01/05/17 [History] Pantoprazole Sodium [Protonix] 40 mg PO DAILY 01/14/17 [History] Vitamin B Complex/Folic Acid [Complex B-100 ER Caplet] 0.4 mg PO DAILY 01/14/17 [History] Acetaminophen [Tylenol] 650 mg PO Q6H #100 tablet 01/21/17 [Rx] Pediatric Multivit Comb No.42 [Flintstones] 1 tab PO BID 02/18/17 [History] Mag Oxide/D3/Turmeric Rt Xt [Magnesium-Vit D3-Turmeric Cap] 1 each PO DAILY [History] Past Medical History HEENT History: Reports: Allergic Rhinitis, Impaired Vision Respiratory History: Reports: Bronchitis, Recurrent Gastrointestinal History: Reports: Cholelithiasis, Chronic Constipation, Chronic Diarrhea, Gastritis, GERD, Hemorrhoids, Irritable Bowel Syndrome, Pancreatitis, Other (See Below) Other Gastrointestinal History: fluid around pancreas Genitourinary History: Reports: UTI, Recurrent 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: Polycystic Ovaries Musculoskeletal History: Reports: Fracture Other Musculoskeletal History: Right hand, right middle finger Neurological History: Reports: Migraines Other Neuro History: Pseudotumor cerebril Psychiatric History: Reports: Anxiety, Depression Hematologic History: Reports: Anemia, B12 Deficiency, Iron Deficiency Other Hematologic History: Iron infusion done at clinic Dermatologic History: Reports: Psoriasis, Other (See Below) Other Dermatologic History: rash under right breast - Infectious Disease History Infectious Disease History: Reports: Chicken Pox - Past Surgical History Head Surgeries/Procedures: Reports: Shunt HEENT Surgical History: Reports: None Respiratory Surgical History: Reports: None GI Surgical History: Reports: Bariatric Procedure, Cholecystectomy, Colonoscopy , EGD Other GI Surgeries/Procedures: 9yr RNY. 8yr Elizabeth, RANDY, partial gastrectomy Female Surgical History: Reports: Breast Biopsy Other Female Surgeries/Procedures: Left breast cyst removed now has chronic nerve pain in that breast. Neurological Surgical History: Reports: Other (See Below) Other Neurological Surgeries/Procedures: evp sales shunt Musculoskeletal Surgical History: Reports: None Dermatological Surgical History: Reports: None Social & Family History - Family History Family Medical History: Noncontributory - Tobacco Use Smoking Status *Q: Current Every Day Smoker Years of Tobacco use: 15 Packs/Tins Daily: 0.2 Used Tobacco, but Quit: No Month Tobacco Last Used: January Second Hand Smoke Exposure: Yes - Caffeine Use Caffeine Use: Reports: None - Recreational Drug Use Recreational Drug Use: No ED ROS GENERAL - Review of Systems Review Of Systems: ROS reveals no pertinent complaints other than HPI. ED EXAM, GI/ABD - Physical Exam Exam: See Below Exam Limited By: No Limitations General Appearance: Alert, WD/WN, Mild Distress (Secondary to pain) Neck: Normal Inspection Respiratory/Chest: No Respiratory Distress, Lungs Clear, Normal Breath Sounds Cardiovascular: Normal Peripheral Pulses, Regular Rate, Rhythm, No Murmur GI/Abdominal Exam: Normal Bowel Sounds, Soft, Other (Midline vertical abdominal incision starting just below the xiphoid process extending to just above the umbilicus with granulation tissue present, there is no signs of acute infection , no purulent drainage noted, no erythema or warmth surrounding incision.) Extremities: Normal Inspection Neurological: Alert, Oriented, CN II-XII Intact Psychiatric: Normal Affect, Normal Mood Skin Exam: Warm, Dry, Wound/Incision Lymphatic: No Adenopathy Course - Vital Signs Last Recorded V/S: Last Vital Signs Temp 36.8 C 03/28/17 16:42 Pulse 84 03/28/17 16:42 Resp 16 03/28/17 16:42 BP 123/81 03/28/17 16:42 Pulse Ox 98 03/28/17 16:42 Jacquelyn is a 32-year-old female with a history of an open abdominal wound that is healing at home with packing by secondary intention who presents to the emergency Department today with complaints of increased pain with her dressing changed today. Wound appears quite well. There is no obvious signs of infection or surrounding cellulitis. Blood work was obtained including a CBC and CMP which are relatively unremarkable, white count is normal, patient does not have a left shift. CRP is very mildly elevated. I discussed patient and her blood work with Dr. Nguyen who agrees that imaging at this time is not warranted and patient can go home with additional pain medication and follow-up in clinic on Tuesday as previously scheduled. I discussed to this plan of care with the patient was agreeable, I will give her a 2 day supply of Percocet to get her to her appointment, reasons to return to the emergency department were discussed, patient is agreeable to plan of care and was discharged in stable condition. - Orders/Labs/Meds Orders: Active Orders 24 hr Category Date Time Status Peripheral IV Care [RC] . DIRECTED Care 03/28/17 16:54 Active Sodium Chloride 0.9% [Normal Saline] 1,000 ml Med 03/28/17 17:00 Active IV ASDIRECTED Sodium Chloride 0.9% [Saline Flush] Med 03/28/17 16:54 Active 10 ml FLUSH ASDIRECTED PRN Peripheral IV Insertion Adult [OM.PC] Routine Oth 03/28/17 16:54 Ordered Medication Orders Sodium Chloride (Normal Saline) 1,000 mls @ 999 mls/hr IV ASDIRECTED MENDEZ Last Admin: 03/28/17 17:16 Dose: 999 mls/hr Sodium Chloride (Saline Flush) 10 ml FLUSH ASDIRECTED PRN PRN Reason: Keep Vein Open Last Admin: 03/28/17 17:20 Dose: 10 ml Labs: Laboratory Tests 03/28/17 03/28/17 03/28/17 Range/Units 17:06 17:06 17:06 WBC 9.0 (4.5-11.0) K/uL RBC 4.34 (3.30-5.50) M/uL Hgb 13.7 (12.0-15.0) g/dL Hct 41.3 (36.0-48.0) % MCV 95 (80-98) fL MCH 32 H (27-31) pg MCHC 33 (32-36) % Plt Count 273 (150-400) K/uL Neut % (Auto) 59 (36-66) % Lymph % (Auto) 22 L (24-44) % [place] % (Auto) 9 H (2-6) % Eos % (Auto) 10 H (2-4) % Baso % (Auto) 1 (0-1) % Sodium 138 L (140-148) mmol/L Potassium 4.1 (3.6-5.2) mmol/L Chloride 105 (100-108) mmol/L Carbon Dioxide 27 (21-32) mmol/L Anion Gap 10.1 (5.0-14.0) mmol/L BUN 8 (7-18) mg/dL Creatinine 0.9 (0.6-1.0) mg/dL Est Cr Clr Drug Dosing 71.66 mL/min Estimated GFR (MDRD) > 60 (>60) Glucose 121 H (74-106) mg/dL Calcium 8.8 (8.5-10.1) mg/dL Total Bilirubin 0.3 (0.2-1.0) mg/dL AST 18 (15-37) U/L ALT 18 (12-78) U/L Alkaline Phosphatase 79 (46-116) U/L C-Reactive Protein 0.85 H (0.0-0.3) mg/dL Total Protein 7.6 (6.4-8.2) g/dL Albumin 3.2 L (3.4-5.0) g/dL Globulin 4.4 H (2.3-3.5) g/dL Albumin/Globulin Ratio 0.7 L (1.2-2.2) Lipase 189 (73-393) U/L HCG, Qual 03/28/17 Range/Units 17:06 WBC (4.5-11.0) K/uL RBC (3.30-5.50) M/uL Hgb (12.0-15.0) g/dL Hct (36.0-48.0) % MCV (80-98) fL MCH (27-31) pg MCHC (32-36) % Plt Count (150-400) K/uL Neut % (Auto) (36-66) % Lymph % (Auto) (24-44) % [place] % (Auto) (2-6) % Eos % (Auto) (2-4) % Baso % (Auto) (0-1) % Sodium (140-148) mmol/L Potassium (3.6-5.2) mmol/L Chloride (100-108) mmol/L Carbon Dioxide (21-32) mmol/L Anion Gap (5.0-14.0) mmol/L BUN (7-18) mg/dL Creatinine (0.6-1.0) mg/dL Est Cr Clr Drug Dosing mL/min Estimated GFR (MDRD) (>60) Glucose (74-106) mg/dL Calcium (8.5-10.1) mg/dL Total Bilirubin (0.2-1.0) mg/dL AST (15-37) U/L ALT (12-78) U/L Alkaline Phosphatase (46-116) U/L C-Reactive Protein (0.0-0.3) mg/dL Total Protein (6.4-8.2) g/dL Albumin (3.4-5.0) g/dL Globulin (2.3-3.5) g/dL Albumin/Globulin Ratio (1.2-2.2) Lipase (73-393) U/L HCG, Qual Negative Meds: Medications Generic Name Dose Route Start Last Admin Trade Name Freq PRN Reason Stop Dose Admin Sodium Chloride 1,000 mls @ 999 mls/hr 03/28/17 17:00 03/28/17 17:16 Normal Saline IV 999 mls/hr ASDIRECTED MENDEZ Administration Sodium Chloride 10 ml 03/28/17 16:54 03/28/17 17:20 Saline Flush FLUSH 10 ml ASDIRECTED PRN Administration Keep Vein Open Discontinued Medications Generic Name Dose Route Start Last Admin Trade Name Freindiana PRN Reason Stop Dose Admin Hydromorphone HCl 1 mg 03/28/17 16:55 03/28/17 17:16 Dilaudid IVPUSH 03/28/17 16:56 1 mg ONETIME ONE Administration Ondansetron HCl 4 mg 03/28/17 16:55 03/28/17 17:16 Zofran IVPUSH 03/28/17 16:56 4 mg ONETIME ONE Administration Departure - Departure Time of Disposition: 18:30 Disposition: Home, Self-Care 01 Condition: Good Clinical Impression: Incisional pain Open abdominal wall wound Qualifiers: Encounter type: initial encounter Qualified Code(s): S31.109A - Unspecified open wound of abdominal wall, unspecified quadrant without penetration into peritoneal cavity, initial encounter - Discharge Information Referrals: Lesly Dougherty CNM [Primary Care Provider] - Forms: ED Department Discharge Additional Instructions: Dressing change as instructed Pain medications as prescribed. Attend Tuesday's appointment as scheduled - My Orders Last 24 Hours: My Active Orders 03/28/17 16:54 Peripheral IV Care [RC] . DIRECTED Sodium Chloride 0.9% [Saline Flush] 10 ml FLUSH ASDIRECTED PRN Peripheral IV Insertion Adult [OM.PC] Routine 03/28/17 17:00 Sodium Chloride 0.9% [Normal Saline] 1,000 ml IV ASDIRECTED - Assessment/Plan Last 24 Hours: My Active Orders 03/28/17 16:54 Peripheral IV Care [RC] . DIRECTED Sodium Chloride 0.9% [Saline Flush] 10 ml FLUSH ASDIRECTED PRN Peripheral IV Insertion Adult [OM.PC] Routine 03/28/17 17:00 Sodium Chloride 0.9% [Normal Saline] 1,000 ml IV ASDIRECTED
[2017-03-28] MEDS ORDERED: Sodium Chloride 0.9% 1,000 ML IV SCH (17:00)
== END 2017-03-28 18:20 | disposition home or self-care (01) ==
LOC: JP.ED 16:29
DX: G89.18 Other acute postprocedural pain (principal); S31.109D Unspecified open wound of abdominal wall, unspecified quadrant without penetration into peritoneal cavity, subsequent encounter; F41.9 Anxiety disorder, unspecified; K21.9 Gastro-esophageal reflux disease without esophagitis; F32.9 Major depressive disorder, single episode, unspecified; F17.210 Nicotine dependence, cigarettes, uncomplicated; Z87.440 Personal history of urinary (tract) infections; Z79.899 Other long term (current) drug therapy; Z88.2 Allergy status to sulfonamides; Z91.048 Other nonmedicinal substance allergy status; Z90.49 Acquired absence of other specified parts of digestive tract; Z98.84 Bariatric surgery status; Z98.890 Other specified postprocedural states
CPT/HCPCS: 36415; 80053; 83690; 84703; 85025; 86140; 96361; 96374; 96375; 99284; J1170; J2405; J7040; J7050

== ENCOUNTER 2017-05-05 06:53 | Emergency (ER) | payer MEDICAID ==
[2017-05-05 07:19] VITALS: BP 103/42
[2017-05-05] MEDS ORDERED: methylPREDNISolone Sodium Succinate 125 MG/2 ML SDV IM ONE (07:26)
[2017-05-05] MEDS ORDERED: diphenhydrAMINE 50 MG/ML SDV IM ONE (07:26)
--- NOTE | 2017-05-05 07:26 | EDM.PDOC ---
ED HPI GENERAL MEDICAL PROBLEM - General Chief Complaint: General Stated Complaint: RASH Time Seen by Provider: 05/05/17 07:20 Source of Information: Reports: Patient History Limitations: Reports: No Limitations - History of Present Illness INITIAL COMMENTS - FREE TEXT/NARRATIVE: 32-year-old female has had a cold with a cough for the past several days started developing itchy rash last evening. She had significant nausea and vomited several times from 1:00 to 3:30 in the morning. She said she tried to take some Benadryl but threw it up, however she hasn't taken any medication this morning. No fevers or chills. Some mild shortness of breath persists. The nausea seems to have resolved. Location: Reports: Generalized Severity: Mild Associated Symptoms: Reports: Cough, Shortness of Breath, Other (Cold symptoms for the past several days). Denies: Fever/Chills - Related Data Allergies Allergy/AdvReac Type Severity Reaction Status Date / Time Sulfa (Sulfonamide Allergy Cannot Verified 05/05/17 07:12 Antibiotics) Remember phosphate Allergy Severe Anaphylactic Uncoded 05/05/17 07:12 Shock environmental Allergy Cannot Uncoded 05/05/17 07:12 Remember Home Meds: Home Meds Doxepin [SINEquan] 30 mg PO BEDTIME 12/28/16 [History] Gabapentin [Neurontin] 100 mg PO QID 12/28/16 [History] Topiramate [Topamax] 25 mg PO QID 12/28/16 [History] Cholecalciferol (Vitamin D3) [Vitamin D3] 5,000 unit PO DAILY 01/05/17 [History] Cyanocobalamin/Folic Acid [B-12 1,000 Mcg Sub Tablet] 1 tab SL DAILY 01/05/17 [ History] Fluticasone Propionate [Flonase] 1 spray NS DAILY 01/05/17 [History] Iron,Carbonyl/Ascorbic Acid [Vitron-C Tablet] 1 each PO DAILY 01/05/17 [History] metFORMIN [Glucophage] 850 mg PO BIDMEALS 01/05/17 [History] Pantoprazole Sodium [Protonix] 40 mg PO DAILY 01/14/17 [History] Vitamin B Complex/Folic Acid [Complex B-100 ER Caplet] 0.4 mg PO DAILY 01/14/17 [History] Acetaminophen [Tylenol] 650 mg PO Q6H #100 tablet 01/21/17 [Rx] Pediatric Multivit Comb No.42 [Flintstones] 1 tab PO BID 02/18/17 [History] Mag Oxide/D3/Turmeric Rt Xt [Magnesium-Vit D3-Turmeric Cap] 1 each PO DAILY [History] Past Medical History HEENT History: Reports: Allergic Rhinitis, Impaired Vision Respiratory History: Reports: Bronchitis, Recurrent Gastrointestinal History: Reports: Cholelithiasis, Chronic Constipation, Chronic Diarrhea, Gastritis, GERD, Hemorrhoids, Irritable Bowel Syndrome, Pancreatitis, Other (See Below) Other Gastrointestinal History: fluid around pancreas Genitourinary History: Reports: UTI, Recurrent 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: Polycystic Ovaries Musculoskeletal History: Reports: Fracture Other Musculoskeletal History: Right hand, right middle finger Neurological History: Reports: Migraines Other Neuro History: Pseudotumor cerebril Psychiatric History: Reports: Anxiety, Depression Hematologic History: Reports: Anemia, B12 Deficiency, Iron Deficiency Other Hematologic History: Iron infusion done at clinic Dermatologic History: Reports: Psoriasis, Other (See Below) Other Dermatologic History: rash under right breast - Infectious Disease History Infectious Disease History: Reports: Chicken Pox - Past Surgical History Head Surgeries/Procedures: Reports: Shunt HEENT Surgical History: Reports: None Respiratory Surgical History: Reports: None GI Surgical History: Reports: Bariatric Procedure, Cholecystectomy, Colonoscopy , EGD Other GI Surgeries/Procedures: 9yr RNY. 8yr Elizabeth, RANDY, partial gastrectomy Female Surgical History: Reports: Breast Biopsy Other Female Surgeries/Procedures: Left breast cyst removed now has chronic nerve pain in that breast. Neurological Surgical History: Reports: Other (See Below) Other Neurological Surgeries/Procedures: vp strategic planning shunt Musculoskeletal Surgical History: Reports: None Dermatological Surgical History: Reports: None Social & Family History - Family History Family Medical History: Noncontributory - Tobacco Use Smoking Status *Q: Current Every Day Smoker Years of Tobacco use: 15 Packs/Tins Daily: 0.2 Used Tobacco, but Quit: No Month Tobacco Last Used: January Second Hand Smoke Exposure: Yes - Caffeine Use Caffeine Use: Reports: None - Recreational Drug Use Recreational Drug Use: No ED ROS GENERAL - Review of Systems Review Of Systems: See Below Constitutional: Denies: Fever, Chills HEENT: Reports: Rhinitis. Denies: Throat Pain, Throat Swelling Respiratory: Reports: Shortness of Breath, Wheezing, Cough Cardiovascular: Reports: No Symptoms GI/Abdominal: Reports: Nausea, Vomiting (Overnight, improved) Neurological: Denies: Dizziness, Headache ED EXAM, GENERAL - Physical Exam Exam: See Below Exam Limited By: No Limitations General Appearance: Alert, No Apparent Distress Eye Exam: Bilateral Eye: Normal Inspection Throat/Mouth: Normal Inspection Respiratory/Chest: Wheezing (Patient has a few scattered expiratory wheezes but generally good air movement, no increased respiratory effort) Cardiovascular: Regular Rate, Rhythm, Tachycardia Extremities: No: Pedal Edema Neurological: Alert, Oriented Psychiatric: Normal Affect, Normal Mood Skin Exam: Other (Patient has widespread urticarial lesions, macular erythema that blanches easily) Course - Vital Signs Last Recorded V/S: Last Vital Signs Temp 98.0 F 05/05/17 07:16 Pulse 118 H 05/05/17 07:16 Resp 16 05/05/17 07:16 BP 103/42 L 05/05/17 07:16 Pulse Ox 94 L 05/05/17 07:16 - Orders/Labs/Meds Meds: Medications Discontinued Medications Generic Name Dose Route Start Last Admin Trade Name Sharq PRN Reason Stop Dose Admin Diphenhydramine HCl 50 mg 05/05/17 07:26 05/05/17 07:31 Benadryl IM 05/05/17 07:27 50 mg ONETIME ONE Administration Methylprednisolone Sodium Succinate 125 mg 05/05/17 07:26 05/05/17 07:31 Solu-Medrol IM 05/05/17 07:27 125 mg ONETIME ONE Administration - Re-Assessments/Exams Free Text/Narrative Re-Assessment/Exam: 05/05/17 07:36 Explained to the patient that she has "hives". I'm unsure if this is something oral or result of her viral cold. She has difficulty taking oral medications when nauseated so she was given 125 mg of Solu-Medrol IM along with 50 mg of Benadryl IM. She does have a ride home. I encouraged her to continue with oral Benadryl 25-50 mg every 6 hours and gave her additional prednisone to take 50 mg each morning starting tomorrow if needed. She can return anytime if worsening despite medications. Departure - Departure Time of Disposition: 07:50 Disposition: Home, Self-Care 01 Condition: Good Clinical Impression: Urticaria - Discharge Information Instructions: [place], [id number] Referrals: PCP,None [Primary Care Provider] - Forms: ED Department Discharge Care Plan Goals: Repeat oral Benadryl 25-50 mg every 6 hours if rash persists. Prednisone should be taken 5 pills with your first food daily up to 6 days starting tomorrow unless rash has resolved. If not improved in 2-3 days recheck and also return sooner at any time if worsening or concerns.
== END 2017-05-05 07:50 | disposition home or self-care (01) ==
LOC: JP.ED 06:53
DX: L50.9 Urticaria, unspecified (principal); Z88.2 Allergy status to sulfonamides; Z91.048 Other nonmedicinal substance allergy status; Z79.899 Other long term (current) drug therapy; Z87.440 Personal history of urinary (tract) infections; F17.210 Nicotine dependence, cigarettes, uncomplicated
CPT/HCPCS: 96372; 99283; J1200; J2930

== ENCOUNTER 2017-05-05 20:55 | Emergency (ER) | payer MEDICAID ==
[2017-05-05 22:28] VITALS: BP 110/76
--- NOTE | 2017-05-05 23:10 | EDM.PDOC ---
ED HPI GENERAL MEDICAL PROBLEM - General Chief Complaint: Respiratory Problem Stated Complaint: sob Time Seen by Provider: 05/05/17 23:08 Source of Information: Reports: Patient - History of Present Illness INITIAL COMMENTS - FREE TEXT/NARRATIVE: There is old female patient presented with chief complaint of shortness of breath. This started yesterday. Worse tonight. Also complaining of generalized urticarial skin rash started last night. Vision was seen in the ER earlier today and given one 25 mg IM some withdrawal and 50 mg IM Benadryl and eggnogs was urticaria and sent home. Patient was discharged on prednisone to start tomorrow. Patient stated tonight she felt more short of breath prior to arrival. However since She arrived hospital she is feeling much better. Mild dry cough. She have cold symptoms for the last few days. She cannot recall exposure to any chemical, detergent, clothes, new food, recent travel or any new medication. Abdominal Pain Score (Numeric/FACES): 8 - Related Data Allergies Allergy/AdvReac Type Severity Reaction Status Date / Time Sulfa (Sulfonamide Allergy Cannot Verified 05/05/17 22:28 Antibiotics) Remember phosphate Allergy Severe Anaphylactic Uncoded 05/05/17 07:12 Shock environmental Allergy Cannot Uncoded 05/05/17 07:12 Remember Home Meds: Home Meds Doxepin [SINEquan] 30 mg PO BEDTIME 12/28/16 [History] Gabapentin [Neurontin] 100 mg PO QID 12/28/16 [History] Topiramate [Topamax] 25 mg PO QID 12/28/16 [History] Cholecalciferol (Vitamin D3) [Vitamin D3] 5,000 unit PO DAILY 01/05/17 [History] Cyanocobalamin/Folic Acid [B-12 1,000 Mcg Sub Tablet] 1 tab SL DAILY 01/05/17 [ History] Fluticasone Propionate [Flonase] 1 spray NS DAILY 01/05/17 [History] Iron,Carbonyl/Ascorbic Acid [Vitron-C Tablet] 1 each PO DAILY 01/05/17 [History] metFORMIN [Glucophage] 850 mg PO BIDMEALS 01/05/17 [History] Pantoprazole Sodium [Protonix] 40 mg PO DAILY 01/14/17 [History] Vitamin B Complex/Folic Acid [Complex B-100 ER Caplet] 0.4 mg PO DAILY 01/14/17 [History] Acetaminophen [Tylenol] 650 mg PO Q6H #100 tablet 01/21/17 [Rx] Pediatric Multivit Comb No.42 [Flintstones] 1 tab PO BID 02/18/17 [History] Mag Oxide/D3/Turmeric Rt Xt [Magnesium-Vit D3-Turmeric Cap] 1 each PO DAILY [History] diphenhydrAMINE HCl [Benadryl] 25 - 50 mg PO Q6H PRN 05/05/17 [History] predniSONE [Prednisone] 1 tab PO ASDIRECTED 05/05/17 [History] Past Medical History HEENT History: Reports: Allergic Rhinitis, Impaired Vision Respiratory History: Reports: Bronchitis, Recurrent Gastrointestinal History: Reports: Cholelithiasis, Chronic Constipation, Chronic Diarrhea, Gastritis, GERD, Hemorrhoids, Irritable Bowel Syndrome, Pancreatitis, Other (See Below) Other Gastrointestinal History: fluid around pancreas Genitourinary History: Reports: UTI, Recurrent 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: Polycystic Ovaries Musculoskeletal History: Reports: Fracture Other Musculoskeletal History: Right hand, right middle finger Neurological History: Reports: Migraines Other Neuro History: Pseudotumor cerebril Psychiatric History: Reports: Anxiety, Depression Hematologic History: Reports: Anemia, B12 Deficiency, Iron Deficiency Other Hematologic History: Iron infusion done at clinic Dermatologic History: Reports: Psoriasis, Other (See Below) Other Dermatologic History: rash under right breast - Infectious Disease History Infectious Disease History: Reports: Chicken Pox - Past Surgical History Head Surgeries/Procedures: Reports: Shunt HEENT Surgical History: Reports: None Respiratory Surgical History: Reports: None GI Surgical History: Reports: Bariatric Procedure, Cholecystectomy, Colonoscopy , EGD Other GI Surgeries/Procedures: 9yr RNY. 8yr Elizabeth, RANDY, partial gastrectomy Female Surgical History: Reports: Breast Biopsy Other Female Surgeries/Procedures: Left breast cyst removed now has chronic nerve pain in that breast. 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 ED EXAM, GENERAL - Physical Exam Exam: See Below Exam Limited By: No Limitations General Appearance: Alert, WD/WN, No Apparent Distress Throat/Mouth: Normal Inspection, Normal Lips, Normal Teeth, Normal Gums, Normal Oropharynx, Normal Voice, No Airway Compromise Head: Atraumatic, Normocephalic Neck: Normal Inspection, Supple, Non-Tender, Full Range of Motion Respiratory/Chest: No Respiratory Distress, Normal Breath Sounds, No Accessory Muscle Use, Chest Non-Tender, Wheezing (Mild faint scattered wheezes) Cardiovascular: Normal Peripheral Pulses ( bilateral), Regular Rate, Rhythm, No Edema, No Gallop, No JVD, No Murmur, No Rub Extremities: Normal Inspection, Normal Range of Motion, Non-Tender, Normal Capillary Refill, No Pedal Edema Neurological: Alert, Oriented, CN II-XII Intact, Normal Cognition, Normal Gait, Normal Reflexes, No Motor/Sensory Deficits Skin Exam: Rash (Diffuses scattered urticaria or rash) Course - Vital Signs Last Recorded V/S: Last Vital Signs Temp 36.1 C 05/05/17 22:25 Pulse 90 05/05/17 22:25 Resp 20 05/05/17 22:25 BP 110/76 05/05/17 22:25 Pulse Ox 94 L 05/05/17 22:25 - Orders/Labs/Meds Orders: Active Orders 24 hr Category Date Time Status Chest 2V [CR] Urgent Exams 05/05/17 23:21 Taken Labs: Laboratory Tests 05/05/17 05/05/17 Range/Units 23:41 23:41 WBC 28.2 H (4.5-11.0) K/uL RBC 5.04 (3.30-5.50) M/uL Hgb 15.7 H D (12.0-15.0) g/dL Hct 46.2 (36.0-48.0) % MCV 92 (80-98) fL MCH 31 (27-31) pg MCHC 34 (32-36) % Plt Count 275 (150-400) K/uL Neut % (Auto) 93 H (36-66) % Lymph % (Auto) 3 L (24-44) % Marshall % (Auto) 5 (2-6) % Eos % (Auto) 0 L (2-4) % Baso % (Auto) 0 (0-1) % Sodium 135 L (140-148) mmol/L Potassium 4.3 (3.6-5.2) mmol/L Chloride 100 (100-108) mmol/L Carbon Dioxide 26 (21-32) mmol/L Anion Gap 13.3 (5.0-14.0) mmol/L BUN 12 (7-18) mg/dL Creatinine 1.0 (0.6-1.0) mg/dL Est Cr Clr Drug Dosing 65.06 mL/min Estimated GFR (MDRD) > 60 (>60) Glucose 142 H (74-106) mg/dL Calcium 9.4 (8.5-10.1) mg/dL Meds: Medications Discontinued Medications Generic Name Dose Route Start Last Admin Trade Name Freq PRN Reason Stop Dose Admin Diphenhydramine HCl 25 mg 05/05/17 23:23 05/05/17 23:44 Benadryl IVPUSH 05/05/17 23:24 25 mg ONETIME ONE Administration Methylprednisolone Sodium Succinate 125 mg 05/05/17 23:22 05/05/17 23:43 Solu-Medrol IVPUSH 05/05/17 23:23 125 mg ONETIME ONE Administration - Re-Assessments/Exams Free Text/Narrative Re-Assessment/Exam: 05/05/17 23:28 Patient was seen and examined shortly after arrival. Given 125 mg IV symptoms all and 25 mg IV Benadryl. Symptoms markedly improved. Lab and imaging reviewed with the patient. Chest x-ray unremarkable. White count is markedly elevated which could be related to some sort of viral illness, also been on steroid. Patient was given the option to be admitted for further management if she is still not feeling well however she stated that she is feeling much better and refused admission and wanted to go home and continue her oral steroids and come back if symptom worsen otherwise she will follow-up with her primary doctor in the clinic. At this point unclear as a symptom related to exposure to some sort of allergenic material versus viral illness. Advised come back if symptom worsen. Patient agrees with the plan. Stable for discharge. Was also given a prescription for EpiPen for when necessary use this. 05/06/17 00:20 Departure - Departure Time of Disposition: 00:23 Disposition: Refer to Observation Condition: Good Clinical Impression: Urticaria, Acute upper respiratory infection, Reactive airway disease - Discharge Information Instructions: Shortness of Breath, [id number], Upper Respiratory Infection, Adult, [id number] Referrals: PCP,None [Primary Care Provider] - Forms: ED Department Discharge Additional Instructions: Continue prednisone Come back if symptom worsen Follow-up his primary doctor tomorrow for reevaluation - My Orders Last 24 Hours: My Active Orders 05/05/17 23:21 Chest 2V [CR] Urgent - Assessment/Plan Last 24 Hours: My Active Orders 05/05/17 23:21 Chest 2V [CR] Urgent Plan: Continue prednisone Come back if symptom worsen Follow-up his primary doctor tomorrow for reevaluation
[2017-05-05] MEDS ORDERED: methylPREDNISolone Sodium Succinate 125 MG/2 ML SDV IVPUSH ONE (23:22)
[2017-05-05] MEDS ORDERED: diphenhydrAMINE 50 MG/ML SDV IVPUSH ONE (23:23)
--- NOTE | 2017-05-06 08:59 | CR ---
Chest 2V HISTORY: sob COMPARISON: 02/21/2017 FINDINGS: Lungs appear clear and normally aerated. Cardiomediastinal silhouette is within normal limits. No vas cular redistribution or pleural fluid can be seen. Small anterior osteophytes are noted lower thoraci c spine. The thoracic portion of the BACK MAKER shunt catheter is again noted crossing the right chest. IMPRESSION: No acute chest abnormality or significant interval change is identified.
== END 2017-05-06 00:43 | disposition home or self-care (01) ==
LOC: JP.ED 20:55
DX: J45.909 Unspecified asthma, uncomplicated (principal); J06.9 Acute upper respiratory infection, unspecified; L50.9 Urticaria, unspecified; F17.210 Nicotine dependence, cigarettes, uncomplicated; G43.909 Migraine, unspecified, not intractable, without status migrainosus; D64.9 Anemia, unspecified; Z90.49 Acquired absence of other specified parts of digestive tract; Z79.899 Other long term (current) drug therapy; Z88.2 Allergy status to sulfonamides; Z91.09 Other allergy status, other than to drugs and biological substances; Z91.048 Other nonmedicinal substance allergy status; Z87.440 Personal history of urinary (tract) infections
CPT/HCPCS: 36415; 71020; 80048; 85025; 96372; 96374; 96375; 99283; 99285; J1200; J2930; 99284

== ENCOUNTER 2017-05-07 10:54 | Inpatient (IN) | payer MEDICAID ==
--- NOTE | 2017-05-07 11:35 | EDM.PDOC ---
ED HPI GENERAL MEDICAL PROBLEM - General Chief Complaint: General Stated Complaint: ABD SURGICAL INCISION OPENED UP Time Seen by Provider: 05/07/17 11:31 Source of Information: Reports: Patient, RN Notes Reviewed History Limitations: Reports: No Limitations - History of Present Illness INITIAL COMMENTS - FREE TEXT/NARRATIVE: 32-year-old female presents emergency department today with complaint of open surgical wound prior surgery was done and of March but has had some complications with revisions was evaluated in the clinic by surgery on Tuesday and appeared clean dry and intact healing well unfortunately last night she had opening of the wound with a large amount of fluid drainage, Dr. Hawkins was in the emergency department at the time he was consult and for the case, recommended surgical intervention at this time. Abdominal Pain Score (Numeric/FACES): 9 - Related Data Allergies Allergy/AdvReac Type Severity Reaction Status Date / Time Sulfa (Sulfonamide Allergy Cannot Verified 05/05/17 22:28 Antibiotics) Remember phosphate Allergy Severe Anaphylactic Uncoded 05/05/17 07:12 Shock environmental Allergy Cannot Uncoded 05/05/17 07:12 Remember Home Meds: Home Meds Doxepin [SINEquan] 30 mg PO BEDTIME 12/28/16 [History] Gabapentin [Neurontin] 100 mg PO QID 12/28/16 [History] Topiramate [Topamax] 25 mg PO QID 12/28/16 [History] Cholecalciferol (Vitamin D3) [Vitamin D3] 5,000 unit PO DAILY 01/05/17 [History] Cyanocobalamin/Folic Acid [B-12 1,000 Mcg Sub Tablet] 1 tab SL DAILY 01/05/17 [ History] Fluticasone Propionate [Flonase] 1 spray NS DAILY 01/05/17 [History] Iron,Carbonyl/Ascorbic Acid [Vitron-C Tablet] 1 each PO DAILY 01/05/17 [History] metFORMIN [Glucophage] 850 mg PO BIDMEALS 01/05/17 [History] Pantoprazole Sodium [Protonix] 40 mg PO DAILY 01/14/17 [History] Vitamin B Complex/Folic Acid [Complex B-100 ER Caplet] 0.4 mg PO DAILY 01/14/17 [History] Acetaminophen [Tylenol] 650 mg PO Q6H #100 tablet 01/21/17 [Rx] Pediatric Multivit Comb No.42 [Flintstones] 1 tab PO BID 02/18/17 [History] Mag Oxide/D3/Turmeric Rt Xt [Magnesium-Vit D3-Turmeric Cap] 1 each PO DAILY [History] diphenhydrAMINE HCl [Benadryl] 25 - 50 mg PO Q6H PRN 05/05/17 [History] predniSONE [Prednisone] 1 tab PO ASDIRECTED 05/05/17 [History] Past Medical History HEENT History: Reports: Allergic Rhinitis, Impaired Vision Respiratory History: Reports: Bronchitis, Recurrent Gastrointestinal History: Reports: Cholelithiasis, Chronic Constipation, Chronic Diarrhea, Gastritis, GERD, Hemorrhoids, Irritable Bowel Syndrome, Pancreatitis, Other (See Below) Other Gastrointestinal History: fluid around pancreas Genitourinary History: Reports: UTI, Recurrent 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: Polycystic Ovaries Musculoskeletal History: Reports: Fracture Other Musculoskeletal History: Right hand, right middle finger Neurological History: Reports: Migraines Other Neuro History: Pseudotumor cerebril Psychiatric History: Reports: Anxiety, Depression Hematologic History: Reports: Anemia, B12 Deficiency, Iron Deficiency Other Hematologic History: Iron infusion done at clinic Dermatologic History: Reports: Psoriasis Other Dermatologic History: rash under right breast - Infectious Disease History Infectious Disease History: Reports: Chicken Pox - Past Surgical History Head Surgeries/Procedures: Reports: Shunt GI Surgical History: Reports: Bariatric Procedure, Cholecystectomy, Colonoscopy , EGD Other GI Surgeries/Procedures: 9yr RNY. 8yr Elizabeth, RANDY, partial gastrectomy Female Surgical History: Reports: Breast Biopsy Other Female Surgeries/Procedures: Left breast cyst removed now has chronic nerve pain in that breast. 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 ED EXAM, GENERAL - Physical Exam Exam: Not Obtained Free Text/Narrative:: Patient was examined by Dr. Hawkins general surgery Course - Vital Signs Last Recorded V/S: Last Vital Signs Temp 97.3 F 05/07/17 11:17 Pulse 94 05/07/17 11:17 Resp 14 05/07/17 11:17 BP 116/73 05/07/17 11:17 Pulse Ox 95 05/07/17 11:17 - Orders/Labs/Meds Orders: Active Orders 24 hr Category Date Time Status AMYLASE [CHEM] Stat Lab 05/07/17 11:26 Ordered CBC WITH AUTO DIFF [HEME] Stat Lab 05/07/17 11:26 Ordered COMPREHENSIVE METABOLIC PN,CMP [CHEM] Stat Lab 05/07/17 11:26 Ordered LIPASE [CHEM] Stat Lab 05/07/17 11:27 Ordered Departure - Departure Time of Disposition: 11:34 Disposition: Admitted As Inpatient 68 Condition: Fair Clinical Impression: Disruption of internal operation (surgical) wound, not elsewhere classified, initial encounter, Josh Thompson surgeon - Discharge Information Referrals: Lesly Dougherty CNM [Primary Care Provider] - - Assessment/Plan Plan: Assessment Acuity = acute Site and laterality = dehiscence of surgical wound with open abdominal cavity Etiology = unclear etiology Manifestations = pain Location of injury = Home Lab values = none Plan Please see Dr. Hawkins's note for details, surgical crew was contacted plan for surgical intervention This note was dictated using [employer] voice recognition software please call with any questions.
[2017-05-07] MEDS ORDERED: Bupivacaine 0.5%/EPINEPHrine 1:200,000 50 ML MDV ONE (11:49)
[2017-05-07] MEDS ORDERED: Ondansetron 4 MG/2 ML SDV ONE (11:54)
[2017-05-07] MEDS ORDERED: Glycopyrrolate 0.2 MG/ML 5 ML MDV ONE (11:54)
[2017-05-07] MEDS ORDERED: Propofol 200 MG/20 ML SDV ONE (11:54)
[2017-05-07] MEDS ORDERED: Dexamethasone 4 MG/ML SDV ONE (11:54)
[2017-05-07] MEDS ORDERED: Neostigmine Methylsulfate 1 MG/ML 5 ML Syringe ONE (11:54)
[2017-05-07] MEDS ORDERED: Rocuronium 50 MG/5 ML Vial ONE (11:54)
[2017-05-07] MEDS ORDERED: metroNIDAZOLE/Normal Saline 500 MG in Premix Bag 1 BAG IV ONE (12:00)
[2017-05-07] MEDS ORDERED: ceFAZolin 2 GM in Sodium Chloride 0.9% 50 ML IV ONE (12:00)
[2017-05-07] MEDS ORDERED: Benzocaine/Cetylpyridinium/Menthol Lozenge MUCMEM PRN (12:48)
[2017-05-07] MEDS ORDERED: Zolpidem 5 MG Tab PO PRN (12:48)
[2017-05-07] MEDS ORDERED: hydrOXYzine HCl 100 MG/2 ML SDV IM PRN (12:48)
[2017-05-07] MEDS ORDERED: Promethazine 25 MG/ML SDV IM PRN (12:48)
[2017-05-07] MEDS ORDERED: diphenhydrAMINE 50 MG/ML SDV IVPUSH PRN (12:48)
[2017-05-07] MEDS ORDERED: Piperacillin/Tazobactam 3.375 GM in Sodium Chloride 0.9% 50 ML IV SCH (13:00)
[2017-05-07] MEDS: fentaNYL 100 MCG/2 ML SDV IVPUSH PRN ×4 (13:52→22:00)
[2017-05-07] MEDS: Acetaminophen/HYDROcodone 325-5 MG Tab PO PRN ×2 (16:35→20:38)
[2017-05-07] MEDS: Piperacillin/Tazobactam/Dext 3.375 GM in Premix Bag 1 BAG IV SCH ×2 (16:35→22:02)
[2017-05-07] MEDS ORDERED: FLU Vacc QS 2017-18 (36mos UP)/PF 60 MCG/0.5 ML Syringe IM ONE (20:00)
[2017-05-07] MEDS: Doxepin 10 MG Cap PO SCH (22:02)
[2017-05-07] MEDS: Gabapentin 100 MG Cap PO SCH (22:02)
[2017-05-07] MEDS ORDERED: Topiramate 25 MG Tab ONE (22:11)
[2017-05-07] MEDS: Topiramate 100 MG Tab PO SCH (22:13)
[2017-05-07] MEDS: Sodium Chloride 0.9% 1,000 ML IV SCH (23:19)
[2017-05-08] MEDS: Acetaminophen/HYDROcodone 325-10 MG Tab PO PRN ×6 (00:31→21:38)
[2017-05-08] MEDS: Piperacillin/Tazobactam/Dext 3.375 GM in Premix Bag 1 BAG IV SCH ×4 (03:27→21:39)
[2017-05-08] MEDS: Gabapentin 100 MG Cap PO SCH ×4 (05:11→21:38)
[2017-05-08] MEDS: Sodium Chloride 0.9% 1,000 ML IV SCH (08:02)
[2017-05-08] MEDS: Pantoprazole 40 MG Tab.CR PO SCH (08:32)
[2017-05-08] MEDS ORDERED: Pantoprazole 40 MG Tab.CR PO SCH (09:00)
--- NOTE | 2017-05-08 10:40 | PN ---
DATE OF SERVICE: 05/08/2017 SUBJECTIVE: The patient continues to improve. Pain is improved. No nausea, vomiting, shortness of breath, or chest pain. She is passing gas. OBJECTIVE: VITAL SIGNS: Stable. CARDIOVASCULAR: Regular rhythm and rate. RESPIRATORY: Lungs are clear to auscultation bilaterally. ABDOMEN: Nondistended, nontender. ASSESSMENT: Status post infection. PLAN: We will continue IV antibiotics. We will continue with diet and activity. Anticipated discharge hopefully in the next 40-72 hours. Elvis Hawkins MD /[id number]
[2017-05-08] MEDS ORDERED: FLU Vacc QS 2017-18 (36mos UP)/PF 60 MCG/0.5 ML Syringe IM ONE (11:30)
[2017-05-08] MEDS ORDERED: Ferrous Fumarate/Vitamin C 200-125 MG Tab PO SCH (14:00)
[2017-05-08] MEDS: Multivitamins with Iron Tab.Chew CHEW SCH (14:42)
[2017-05-08] MEDS: Doxepin 10 MG Cap PO SCH (20:15)
[2017-05-08] MEDS: Topiramate 100 MG Tab PO SCH (20:15)
[2017-05-09] MEDS: Acetaminophen/HYDROcodone 325-10 MG Tab PO PRN ×6 (01:40→23:46)
[2017-05-09] MEDS: Piperacillin/Tazobactam/Dext 3.375 GM in Premix Bag 1 BAG IV SCH ×2 (03:51→10:18)
[2017-05-09] MEDS: Gabapentin 100 MG Cap PO SCH ×4 (05:48→21:09)
[2017-05-09] MEDS: Multivitamins with Iron Tab.Chew CHEW SCH (08:28)
[2017-05-09] MEDS: Pantoprazole 40 MG Tab.CR PO SCH (08:28)
--- NOTE | 2017-05-09 09:51 | PN ---
DATE OF SERVICE: 05/09/2017 SUBJECTIVE: The patient continues to improve today. Pain is controlled. No nausea, vomiting, shortness of breath, or chest pain. OBJECTIVE: VITAL SIGNS: Stable. CARDIOVASCULAR: Regular rhythm and rate. RESPIRATORY: Lungs are clear to consultation bilaterally. ABDOMEN: Wound VAC is intact. ASSESSMENT: Status post abscess drainage. PLAN: The patient will have her wound VAC changed today. We asked Arianna Gomez to take a look at this during the change process. She also will be able to shower. I anticipate discharge in the next 24-48 hours. Elvis Hawkins MD /[id number]
--- NOTE | 2017-05-09 13:10 | OR ---
DATE OF PROCEDURE: 05/07/2017 PROCEDURE: 1. Reopening of recent laparotomy (35002). 2. Drainage of perineal abscess (67124). 3. Wound VAC placement (62067). COMPLICATIONS: None. 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 ANESTHESIA: General/local. INDICATIONS: A 32-year-old female who presents to the emergency room with the fluid draining from her previous laparotomy site. The etiology of this was unknown at this time, therefore, the patient required an exploratory laparotomy for delineation. She previously underwent a probable pancreatic fluid drainage. FINDINGS: Abscess pocket. No elena evidence of fistula or stool leakage. PROCEDURE IN DETAIL: The patient was placed in supine position. The abdomen was prepped and draped. The midline incision was already open approximately 3 to 5 mm and found to be completely dehisced. This was opened gently and small bowel was identified. The abdomen was not opened due to the dense inflammation and a high probability of fistula formation if this was commenced. Therefore, this abscess area was cultured, irrigated, and a wound VAC was placed using standard technique of sponge and overlaid with track pad. The patient tolerated the procedure well. Elvis Hawkins MD /[id number]
[2017-05-09] MEDS: Ferrous Fumarate/Vitamin C 200-125 MG Tab PO SCH (13:17)
[2017-05-09] MEDS: Clindamycin HCl 150 MG Cap PO SCH ×2 (15:15→21:09)
[2017-05-09] MEDS: Doxepin 10 MG Cap PO SCH (20:45)
[2017-05-09] MEDS: Topiramate 100 MG Tab PO SCH (20:46)
[2017-05-10] MEDS: Acetaminophen/HYDROcodone 325-10 MG Tab PO PRN ×5 (03:45→20:27)
[2017-05-10] MEDS: Gabapentin 100 MG Cap PO SCH ×4 (06:01→21:53)
[2017-05-10] MEDS: Clindamycin HCl 150 MG Cap PO SCH ×4 (06:01→21:53)
[2017-05-10] MEDS: Pantoprazole 40 MG Tab.CR PO SCH (07:18)
[2017-05-10] MEDS: Multivitamins with Iron Tab.Chew CHEW SCH (10:10)
[2017-05-10] MEDS: Ferrous Fumarate/Vitamin C 200-125 MG Tab PO SCH (10:11)
[2017-05-10] MEDS ORDERED: Topiramate 25 MG Tab ONE (21:41)
[2017-05-10] MEDS: Topiramate 100 MG Tab PO SCH (21:48)
[2017-05-10] MEDS: Doxepin 10 MG Cap PO SCH (21:53)
[2017-05-11] MEDS: Acetaminophen/HYDROcodone 325-10 MG Tab PO PRN ×3 (02:35→12:55)
[2017-05-11] MEDS: Clindamycin HCl 150 MG Cap PO SCH ×2 (05:27→10:04)
[2017-05-11] MEDS: Gabapentin 100 MG Cap PO SCH ×2 (05:28→10:04)
[2017-05-11 07:48] VITALS: BP 115/75
[2017-05-11] MEDS: Multivitamins with Iron Tab.Chew CHEW SCH (08:12)
[2017-05-11] MEDS: Ferrous Fumarate/Vitamin C 200-125 MG Tab PO SCH (08:12)
[2017-05-11] MEDS: Pantoprazole 40 MG Tab.CR PO SCH (08:12)
[2017-05-11] MEDS ORDERED: Calcium Carbonate 500 MG Tab.Chew PO ONE (11:23)
--- NOTE | 2017-05-26 12:05 | DISCH ---
DISCHARGE DIAGNOSIS: Status post abscess. HOSPITAL COURSE: This is a 32-year-old female who developed an abscess after surgical bariatric procedure. The patient underwent an abscess drainage and wound VAC placement. Prior to discharge, her pain is well controlled. She had no nausea, vomiting, shortness of breath, or chest pain. She is tolerating diet without any abnormalities. FOLLOWUP: With Surgery within the next 4 days. ACTIVITY: No lifting greater than 30 pounds x30 days. DISCHARGE MEDICATIONS: Please see MAR, but include [place] for pain.
--- NOTE | 2017-05-26 12:05 | PN ---
DATE OF SERVICE: 05/10/2017 SUBJECTIVE: The patient continues to do well. Pain is well controlled. No nausea, vomiting, shortness of breath, or chest pain. OBJECTIVE: VITAL SIGNS: Stable. CARDIOVASCULAR: Regular rhythm and rate. RESPIRATORY: Lungs clear to auscultation bilaterally. ABDOMEN: Bowel sounds positive. Incision healing well. Wound VAC intact. ASSESSMENT: Status post abscess drainage. PLAN: We will continue the same plan today and work on diet and activity. Elvis Hawkins MD /[id number]
--- NOTE | 2017-05-26 12:19 | OR ---
DATE OF PROCEDURE: 05/10/2017 PROCEDURE: Wound VAC placement ([id number]). COMPLICATIONS: None. BROADCAST CORRESPONDENT: None. INDICATIONS: This 32-year-old female with infected abscess is requiring wound VAC replacement. RISKS: Risks, benefits, alternatives, limitations including, but not limited to infection, bleeding, and chronic pain were explained to the patient. PROCEDURE IN DETAIL: The patient was placed in supine position. The previous wound VAC was removed. This was then inspected. There was no evidence of abnormality. A new black sponge was then placed in, after thoroughly irrigating the wound. This was overlaid with the clear film. A track pad was then placed after creating a defect in the plastic. This was then hooked to suction and functioning well. Elvis Hawkins MD /[id number]
== END 2017-05-11 14:00 | disposition home or self-care (01) | DRG 909 ==
LOC: JP.ED 10:54 → JP.SDS 11:45 → JP.MS 13:20
PROVIDERS: ADMIT Surgery; ATTEND Surgery
PROC: 2W13X6Z Compression of Abdominal Wall using Pressure Dressing (ICD-10-PCS; principal; 2017-05-07)
PROC: 0W9G0ZX Drainage of Peritoneal Cavity, Open Approach, Diagnostic (ICD-10-PCS; principal; 2017-05-07)
PROC: 0WJF0ZZ Inspection of Abdominal Wall, Open Approach (ICD-10-PCS; principal; 2017-05-07)
DX: T81.32XA Disruption of internal operation (surgical) wound, not elsewhere classified, initial encounter (principal); Z23 Encounter for immunization; J30.9 Allergic rhinitis, unspecified; F17.210 Nicotine dependence, cigarettes, uncomplicated; Z87.440 Personal history of urinary (tract) infections; F32.9 Major depressive disorder, single episode, unspecified; F41.9 Anxiety disorder, unspecified; K21.9 Gastro-esophageal reflux disease without esophagitis; H54.7 Unspecified visual loss; Z98.84 Bariatric surgery status; Z98.0 Intestinal bypass and anastomosis status; Z79.52 Long term (current) use of systemic steroids; Z88.2 Allergy status to sulfonamides; Z88.8 Allergy status to other drugs, medicaments and biological substances; Z98.2 Presence of cerebrospinal fluid drainage device
CPT/HCPCS: 36415; 80048; 80053; 82150; 83690; 85025; 87070; 87075; 87077; 87186; 87205; 90686; 96374; 96375; 97605; 99284-25; A9270-GY; G0008; J0690; J1100; J2405; J2543; J2704; J2710; J3010; J7040; J7050

== ENCOUNTER 2017-05-16 13:45 | Emergency (ER) | payer MEDICAID ==
[2017-05-16 14:04] VITALS: BP 127/70
[2017-05-16] MEDS ORDERED: Ketorolac 60 MG/2 ML SDV IM ONE (14:37)
--- NOTE | 2017-05-16 14:47 | EDM.PDOC ---
ED HPI GENERAL MEDICAL PROBLEM - General Chief Complaint: Wound Recheck Stated Complaint: PAIN WOUND VAC SITE Time Seen by Provider: 05/16/17 14:25 Source of Information: Reports: Patient History Limitations: Reports: No Limitations - History of Present Illness INITIAL COMMENTS - FREE TEXT/NARRATIVE: 32-year-old female was having superficial tenderness around the VAC site in her upper abdomen. No fevers or chills. She's been treating with hydrocodone but it' s "not helping". She has an appointment with surgeon tomorrow. Onset: Gradual Severity: Moderate Associated Symptoms: Reports: No Other Symptoms Upper Abdomen Pain Score (Numeric/FACES): 10 - Related Data Allergies Allergy/AdvReac Type Severity Reaction Status Date / Time Sulfa (Sulfonamide Allergy Cannot Verified 05/16/17 14:10 Antibiotics) Remember phosphate Allergy Severe Anaphylactic Uncoded 05/16/17 14:10 Shock environmental Allergy Cannot Uncoded 05/16/17 14:10 Remember Home Meds: Home Meds Doxepin [SINEquan] 30 mg PO BEDTIME 12/28/16 [History] Gabapentin [Neurontin] 100 mg PO QID 12/28/16 [History] Topiramate [Topamax] 4 tab PO BEDTIME 12/28/16 [History] Cholecalciferol (Vitamin D3) [Vitamin D3] 5,000 unit PO DAILY 01/05/17 [History] Cyanocobalamin/Folic Acid [B-12 1,000 Mcg Sub Tablet] 1 tab SL DAILY 01/05/17 [ History] Fluticasone Propionate [Flonase] 1 spray NS DAILY 01/05/17 [History] Iron,Carbonyl/Ascorbic Acid [Vitron-C Tablet] 1 each PO DAILY 01/05/17 [History] metFORMIN [Glucophage] 850 mg PO BIDMEALS 01/05/17 [History] Pantoprazole Sodium [Protonix] 40 mg PO DAILY 01/14/17 [History] Vitamin B Complex/Folic Acid [Complex B-100 ER Caplet] 0.4 mg PO DAILY 01/14/17 [History] Acetaminophen [Tylenol] 650 mg PO Q6H #100 tablet 01/21/17 [Rx] Pediatric Multivit Comb No.42 [Flintstones] 1 tab PO BID 02/18/17 [History] Mag Oxide/D3/Turmeric Rt Xt [Magnesium-Vit D3-Turmeric Cap] 1 each PO DAILY [History] diphenhydrAMINE HCl [Benadryl] 25 - 50 mg PO Q6H PRN 05/05/17 [History] Hydrocodone/Acetaminophen [Hydrocodon-Acetaminophen 5-325] 1 tab PO Q4H PRN [History] Past Medical History HEENT History: Reports: Allergic Rhinitis, Impaired Vision Respiratory History: Reports: Bronchitis, Recurrent Gastrointestinal History: Reports: Cholelithiasis, Chronic Constipation, Chronic Diarrhea, Gastritis, GERD, Hemorrhoids, Irritable Bowel Syndrome, Pancreatitis, Other (See Below) Other Gastrointestinal History: fluid around pancreas Genitourinary History: Reports: UTI, Recurrent 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: 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 Musculoskeletal History: Reports: Fracture Other Musculoskeletal History: Right hand, right middle finger Neurological History: Reports: Migraines Other Neuro History: Pseudotumor cerebril Psychiatric History: Reports: Anxiety, Depression Hematologic History: Reports: Anemia, B12 Deficiency, Iron Deficiency Other Hematologic History: Iron infusion done at clinic Dermatologic History: Reports: Psoriasis Other Dermatologic History: rash under right breast - Infectious Disease History Infectious Disease History: Reports: Chicken Pox - Past Surgical History Head Surgeries/Procedures: Reports: Shunt GI Surgical History: Reports: Bariatric Procedure, Cholecystectomy, Colonoscopy , EGD Other GI Surgeries/Procedures: 9yr RNY. 8yr Elizabeth, RANDY, partial gastrectomy Female Surgical History: Reports: Breast Biopsy Other Female Surgeries/Procedures: Left breast cyst removed now has chronic nerve pain in that breast. Neurological Surgical History: Reports: Other (See Below) Other Neurological Surgeries/Procedures: vp home health shunt Social & Family History - Family History Family Medical History: Noncontributory - Tobacco Use Smoking Status *Q: Current Every Day Smoker Years of Tobacco use: 10 Packs/Tins Daily: 0.1 Used Tobacco, but Quit: No Month Tobacco Last Used: January Second Hand Smoke Exposure: Yes - Caffeine Use Caffeine Use: Reports: None - Recreational Drug Use Recreational Drug Use: No ED ROS GENERAL - Review of Systems Review Of Systems: See Below Constitutional: Denies: Fever, Chills Respiratory: Denies: Shortness of Breath Cardiovascular: Denies: Chest Pain GI/Abdominal: Denies: Nausea, Vomiting : Reports: No Symptoms Skin: Reports: No Symptoms ED EXAM, SKIN/RASH Exam: See Below Exam Limited By: No Limitations General Appearance: Alert, No Apparent Distress (Looks uncomfortable but not acutely distressed) Eye Exam: Bilateral Eye: PERRL Respiratory/Chest: No Respiratory Distress, Lungs Clear GI/Abdominal: Normal Bowel Sounds, Soft, Tender (Patient reacts with some tenderness to palpation around the VAC site) Course - Vital Signs Last Recorded V/S: Last Vital Signs Temp 97.9 F 05/16/17 14:09 Pulse 104 H 05/16/17 14:09 Resp 18 05/16/17 14:09 BP 127/70 05/16/17 14:09 Pulse Ox 100 05/16/17 14:09 - Orders/Labs/Meds Meds: Medications Discontinued Medications Generic Name Dose Route Start Last Admin Trade Name Kylah PRN Reason Stop Dose Admin Ketorolac Tromethamine 60 mg 05/16/17 14:37 05/16/17 14:41 Toradol IM 05/16/17 14:38 60 mg ONETIME ONE Administration - Re-Assessments/Exams Free Text/Narrative Re-Assessment/Exam: 05/16/17 14:45 After discussing her condition with her surgeon, she was given 60 mg of IM Toradol. Encouraged to continue taking her pain medications as prescribed and recheck with surgery tomorrow as scheduled. Departure - Departure Time of Disposition: 15:02 Disposition: Home, Self-Care 01 Condition: Good Clinical Impression: Postoperative abdominal pain - Discharge Information Instructions: Vacuum-Assisted Closure Therapy Referrals: Lesly Dougherty CNM [Primary Care Provider] - Forms: ED Department Discharge Care Plan Goals: Continue your current medications and recheck tomorrow as scheduled.
== END 2017-05-16 15:01 | disposition home or self-care (01) ==
LOC: JP.ED 13:45
DX: G89.18 Other acute postprocedural pain (principal); R10.10 Upper abdominal pain, unspecified; F17.210 Nicotine dependence, cigarettes, uncomplicated; Z90.49 Acquired absence of other specified parts of digestive tract; Z98.890 Other specified postprocedural states; D64.9 Anemia, unspecified; Z79.899 Other long term (current) drug therapy; Z88.2 Allergy status to sulfonamides; Z88.8 Allergy status to other drugs, medicaments and biological substances; Z91.09 Other allergy status, other than to drugs and biological substances; Z98.84 Bariatric surgery status
CPT/HCPCS: 96372; 99284; J1885; 99283